=== PATIENT | male | born 1990 | race African-American/Black ===

== ENCOUNTER 2020-06-26 22:52 | Emergency (ER) | payer MEDICARE, MEDICAID, SELFPAY ==
[2020-06-26 22:57] VITALS: BP 144/84; PULSE 113; RESP 18; TEMP 36.9; O2SAT 96; BMI 36.0
--- NOTE | 2020-06-27 00:29 | PC.NURSE ---
this marketing underwriter went out to call patient in to [facility], pt was found to elope. per registration, patient lwt 10 minutes ago.
--- NOTE | 2020-06-27 00:29 | ED.ALLEREA ---
HPI - Allergic Reaction General Chief complaint: Allergic Reaction Stated complaint: allergic reaction? Time Seen by Provider: 06/27/20 00:29 Source: patient Mode of arrival: ambulatory Limitations: no limitations Related Data Allergies Allergy/AdvReac Type Severity Reaction Status Date / Time nut - unspecified Allergy Cough Verified 06/26/20 22:57 sulfamethoxazole Allergy Unknown Verified 06/26/20 22:57 [From Bactrim] trimethoprim [From Bactrim] Allergy Unknown Verified 06/26/20 22:57 Latex Exam Gloves Allergy Unknown skin Uncoded 05/05/14 00:00 irritation nickel Allergy Unknown skin Uncoded 05/05/14 00:00 irritation peanuts AdvReac Unknown N/V Uncoded 05/05/14 00:00 PMFSH Past Medical History Medical History (Updated 06/26/20 @ 23:01 by Elodia Curry) Pituitary abnormality Seizure Physical Exam Vital Signs: Vital Signs: Last Vital Signs Temp 98.4 F 06/26/20 22:57 Pulse 113 H 06/26/20 22:57 Resp 18 06/26/20 22:57 BP 144/84 H 06/26/20 22:57 Pulse Ox 96 06/26/20 22:57 Body Mass Index 36.0 Discharge Plan Discharge Patient Disposition: Left Without Being Seen
== END 2020-06-27 00:57 | disposition left against medical advice (07) ==
PROVIDERS: Emergency Provider Emergency Medicine
DX: L23.6 Allergic contact dermatitis due to food in contact with the skin (principal); L27.2 Dermatitis due to ingested food
CPT/HCPCS: 99282

== ENCOUNTER → 2023-04-01 19:30 | Outpatient (REF) | payer OTHER, MEDICAID, SELFPAY | LOC: HO.SL 19:30 | PROVIDERS: PCP Internal Medicine; Visit Provider Internal Medicine | DX: Z13.89 Encounter for screening for other disorder (principal) ==

== ENCOUNTER → 2023-05-13 19:30 | Outpatient (REF) | payer OTHER, SELFPAY | LOC: HO.SL 19:30 | PROVIDERS: PCP Internal Medicine; Visit Provider Internal Medicine | DX: Z13.89 Encounter for screening for other disorder (principal) ==

== ENCOUNTER 2023-05-27 09:14 | Outpatient (AMB) | payer OTHER, SELFPAY ==
--- NOTE | 2023-05-27 09:19 | A.OFFPC_ITS ---
Vital Signs 05/27/23 09:21 Height 5 ft 9 in Weight 290 lb BMI 42.8 BP 110/74 Blood Pressure Location Lt brachial Position Sitting Pulse 91 Pulse Source Pulse Oximeter Pulse Oximetry (%) 98 Oxygen Delivery Method Room Air Intake Visit Reasons: est care/ sleep apnea/ seizure Intake Note: Patient is a new patient here to establish care for Seizures, Epilepsy, Sleep Apnea, Sickle Cell. Transferring care from Dr Gallardo ([facility]). Medical records have not been requested and have not received. 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 Metal Burner Required: No Economic Analyst: Not Required per policy Accompanied by: Self / Same As Patient Allergies silver Allergy (Intermediate, Verified 05/27/23 10:33) skin irritations nut - unspecified Allergy (Verified 05/27/23 10:33) Cough sulfamethoxazole [From Bactrim] Allergy (Verified 05/27/23 10:33) Unknown trimethoprim [From Bactrim] Allergy (Verified 05/27/23 10:33) Unknown Latex Exam Gloves Allergy (Unknown, Uncoded 05/27/23 10:33) skin irritation peanuts Adverse Reaction (Unknown, Uncoded 05/27/23 10:33) N/V Medication List - Last Reconciled 05/27/23 by Alex Bond MD clobetasol 0.05% 1 appl topical .every other days oxcarbazepine (Trileptal) 1,200 mg PO BID Tobacco use date assessed: 05/27/23 Dental Screening Dental Screen Date: 05/27/23 Did you have a dental visit in the last 12 months?: No Did you have a dental problem in the last 6 months where you did not have access to dental care?: No Was dental information given to patient?: No HPI est care/ sleep apnea/ seizure HPI Details 33-year-old male presents to the office to establish his care here. Patient is transferring from a primary care in [place]. Patient reports he had a sleep apnea study done. He needs CPAP equipment. Patient is requesting alternative ways to treat his condition. He is also wondering if his tonsils should be removed to treat the obstructive sleep apnea. Patient has sex with men. Currently has 2 partners and uses protection. He would like to take the pre exposure prophylaxis for HIV. Patient never has had HIV testing He gives history of seizure disorder since age 11. Has been on Trileptal and the last seizure has been more than a year .. He sees a neurologist in [place]. Patient also has supported dermatitis in the scalp for which he sees a information technology director. Is prescribed an oral prescription and a lotion. He will bring and the names of the medications in the next visit. [facility] Medical History (Updated 05/28/23 @ 06:14 by Alex Bond MD) Endogenous depression High risk sexual behavior Seborrheic dermatitis Obstructive sleep apnea Pituitary abnormality Seizure Surgical History History of surgery Social History Housing: Condominium Alcohol intake: current Alcohol intake frequency: holidays/special occasions only Patient Tobacco Use Status: Never used Tobacco e-Cigarette/Vaping Use: Never Used Second Hand Smoke Exposure: No service: No Current occupational status: employed Cognitive needs: No Hearing needs: No Vision needs: Yes (Glasses) Questionnaire PHQ-9 Over the last 2 weeks, how often have you been bothered by any of the following problems? 1. Little interest or pleasure in doing things: several days 2. Feeling down, depressed, or hopeless: nearly every day 3. Trouble falling or staying asleep, or sleeping too much: nearly every day 4. Feeling tired or having little energy: nearly every day 5. Poor appetite or overeating: not at all 6. Feeling bad about yourself - or that you are a failure or have let yourself or your family down: not at all 7. Trouble concentrating on things, such as reading the newspaper or watching television: several days 8. Moving or speaking so slowly that other people could have noticed. Or the opposite - being so fidgety or restless that you have been moving around a lot more than usual: nearly every day 9. Thoughts that you would be better off or of hurting yourself in some way: not at all Total score: 14 Depression Screening Interpretation: Positive Depression Screening Follow-up: Community Mental Health Worker F/U Depression Screening Done: Yes Source: Developed by Drs. Dwayne Stafford, Elke Brown, Ryan Baker and colleagues, with an educational enmanuel from [employer]. Thrive Questionnaire Date Thrive assessed: 05/27/23 I am a: Patient What is your living situation today?: I have a steady place to live Within the past 12 months, did the food you bought not last and you didn't have the money to get more?: Never true Within the past 12 months, did you worry whether your food would run out before you got money to buy more?: Never true Do you have trouble paying for medicines?: No Do you have trouble getting transportation to medical appointments?: No Do you have trouble paying your heating and electricity bill?: No Do you have trouble taking care of your child, family member or friend?: No Do you have trouble with day-to-day activities such as bathing, preparing meals, shopping, managing finances, etc.?: No Are you currently unemployed and looking for a job?: No Are you interested in more education?: No Currently or been in a relationship where the following occur: no concerns reported THRIVE Score: 0 AUDIT C Alcohol Use Questionnaire (AUDIT-C) 1. How often do you have a drink containing alcohol?: Monthly or less Total Score: 1 NISA-7 AMB Questionnaire NISA-7 Date NISA - 7 assessed: 05/27/23 Feeling nervous, anxious, or on edge: 1 = Several days Not being able to stop or control worryin = More than half the days Worrying too much about different things: 2 = More than half the days Trouble relaxin = Nearly every day Being so restless that it is hard to sit still: 2 = More than half the days Becoming easily annoyed or irritable: 3 = Nearly every day Feeling afraid as if something awful might happen: 1 = Several days Total NISA-7 score (0-4 normal; 5-9 mild; 10-14 moderate; 15-21 severe): 14 Source: Developed by Drs. Dwayne Stafford, Elke Brown, Ryan Baker and colleagues, with an educational enmanuel from [employer]. Physical exam (Primary Care) Vital Signs: Last Vital Signs Pulse 91 05/27/23 09:21 BP 110/74 05/27/23 09:21 Pulse Ox 98 05/27/23 09:21 Oxygen Delivery Method Room Air 05/27/23 09:21 Care Plan Goal for BP management: BP is in range BMI result Body Mass Index 42.8 BMI Assessment/Plan discussion: High (One pound per week weight loss suggested.) BMI High, discussed plan: lifestyle, weight reduction, dietary and physical activity Tobacco/Smoking Status: Tobacco use Status Tobacco use date assessed 05/27/23 05/27/23 09:38 Patient Tobacco Use Status Never used Tobacco 05/27/23 09:38 e-Cigarette/Vaping Use Never Used 05/27/23 09:38 PHQ-9: PHQ-9 Score PHQ-9: Total score 14 05/27/23 10:35 Depression Screening Interpretation: Positive Depression Screening Follow-up: Community Mental Health Worker F/U Thrive Assessment: Date of Thrive Assessment Date Thrive assessed 05/27/23 05/27/23 09:38 Currently or been in a relationship where the following occur: no concerns reported Const General: cooperative and healthy appearing Nutritional Appearance: well nourished Orientation/consciousness: patient oriented x3 Limitations: no limitations HENMT Head: Yes normal to inspection Eyes General: appearance normal, both eyes and all related structures Neck Neck: Yes normal visual inspection Chest Chest palpation & inspection: normal palpation of entire chest wall Resp Effort & Inspection: normal respiratory effort Neuro General: patient oriented x3 Assessment and Plan Assessment & Plan (1) Obstructive sleep apnea: Code(s): G47.33 - Obstructive sleep apnea (adult) (pediatric) Plan: A sleep study referral has been made. He can discuss with them the results of the sleep study he had and the possible treatment options. (2) Seizure: Code(s): R56.9 - Unspecified convulsions Plan: Condition appears to be baseline. Continue medications and follow up with the neurologist at [facility]. (3) Seborrheic dermatitis: Code(s): L21.9 - Seborrheic dermatitis, unspecified Plan: Condition is at baseline. Pt was advised to call us back with the names of the medications he takes. Follow up with the information technology director as scheduled. (4) High risk sexual behavior: Code(s): Z72.51 - High risk heterosexual behavior Plan: HIV testing ordered. If negative, he is eligible for Pre exposure prophylaxis (5) Endogenous depression: Code(s): F33.2 - Major depressive disorder, recurrent severe without psychotic features Plan: Elevated PHQ-9 score noted. Will discuss treatment in the next visit. Coding Level of Care Code Est Pt Level 4 (57780) Diagnoses Obstructive sleep apnea G47.33 Seizure R56.9 Seborrheic dermatitis L21.9 High risk sexual behavior Z72.51 Endogenous depression F33.2
[2023-05-27 09:21] VITALS: BP 110/74; PULSE 91; O2SAT 98; BMI 42.8
== END 2023-05-27 11:09 | disposition home or self-care (01) ==
PROVIDERS: PCP Internal Medicine; Visit Provider Internal Medicine
DX: R56.9 Unspecified convulsions (principal); F33.2 Major depressive disorder, recurrent severe without psychotic features; G47.33 Obstructive sleep apnea (adult) (pediatric); L21.9 Seborrheic dermatitis, unspecified; Z72.51 High risk heterosexual behavior
CPT/HCPCS: 99214

== ENCOUNTER 2023-07-03 07:26 | Outpatient (AMB) | payer OTHER, SELFPAY ==
--- NOTE | 2023-07-03 07:49 | MHC.OFFVIS ---
Vital Signs 07/03/23 07:50 Height 5 ft 9 in Weight 290 lb BMI 42.8 BP 130/98 H Blood Pressure Location Rt brachial Position Sitting Intake Visit Reasons: INP-BRENDEN *C Emp request for sooner appt SJD-con Intake Note: Patient presents for sleep apnea Allergies silver Allergy (Intermediate, Verified 07/03/23 07:49) skin irritations nut - unspecified Allergy (Verified 07/03/23 07:49) Cough sulfamethoxazole [From Bactrim] Allergy (Verified 07/03/23 07:49) Unknown trimethoprim [From Bactrim] Allergy (Verified 07/03/23 07:49) Unknown Latex Exam Gloves Allergy (Unknown, Uncoded 07/03/23 07:49) skin irritation peanuts Adverse Reaction (Unknown, Uncoded 07/03/23 07:49) N/V Medication List - Last Reconciled 07/03/23 by Arleth Wagner MD clobetasol 0.05% 1 appl topical .every other days melatonin 10 mg PO BEDTIME oxcarbazepine (Trileptal) 1,200 mg PO BID HPI Comments Details: 33y/o comes for sleep evaluation . Main complaints-insomnia, snoring, gasping arousals, excessive daytime sleepiness, witnessed apneas. He reports h/o developmental delay ? 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 H/o seizures - last 7 years ago and stable on trileptal and managed by Dr. Childers at [facility]. H/o anxiety Sleep questionnaire- Difficulty falling asleep-yes- 1 hr Difficulty staying asleep-yes Number of arousals-5 Snoring-yes Witnessed apneas-yes Gasping arousals-yes Nocturia-yes GERD-no Vivid dreams-yes Acting out dreams -no Abnormal behavior in sleep-no ABnormal movements in sleep-no Morning headaches-rare Excessive daytime sleepiness-yes Daytime naps-no restless legs- no Hallucinations-no sleep paralysis- yes- occasionally Drop attacks- no Sleep study-yes 04/04 Results AHI 38 REM AHI 57 [id number] 62% CPAP no He was unable to sleep during titration study Sleep Hygiene- Sleep time- 9-10 pm sleeps at 12 Wake time -6am during weekdays and 9a m on weekends coffee/stimulant use- tea 4 glasses Phone Electronics use-no Exercise-none Bedroom comfort-good [facility] Medical History (Updated 07/03/23 @ 08:32 by Arleth Wagner MD) Insomnia Endogenous depression High risk sexual behavior Seborrheic dermatitis Obstructive sleep apnea Pituitary abnormality Seizure Surgical History History of surgery Social History Housing: Condominium Alcohol intake: current Alcohol intake frequency: holidays/special occasions only Patient Tobacco Use Status: Never used Tobacco e-Cigarette/Vaping Use: Never Used Second Hand Smoke Exposure: No service: No Current occupational status: employed Cognitive needs: No Hearing needs: No Vision needs: Yes (Glasses) Physical Exam Vital Signs: Last Vital Signs BP 130/98 H 07/03/23 07:50 BMI result Body Mass Index 42.8 Const General: cooperative, healthy appearing, comfortable and no acute distress Nutritional Appearance: malnourished and obese Orientation/consciousness: patient oriented x3 Neuro General: patient oriented x3, gait normal, tone normal, moves all extremities and no focal motor deficits Cranial nerves: Yes Facial sensation intact/muscles of mastication intact, Yes Bilaterally intact EOM present, Yes Nystagmus not present, Yes Normal facial strength present and Yes Midline tongue present Cognition (Neuro): normal cognition Gait exam (Neuro): Normal gait present Deep tendon reflexes (DTR's): Right triceps reflex intensity grade: 1+, Left triceps reflex intensity grade: 1+, Rt Biceps (C5, C6): 1+, Left biceps reflex intensity grade: 1+, Right brachioradialis reflex intensity grade: 1+, Left brachioradialis reflex intensity grade: 1+, Right patellar reflex intensity grade: 1+ and Left patellar reflex intensity grade: 1+ Coordination: [id number] test normal Assessment & Plan Assessment & Plan (1) Obstructive sleep apnea: Comment: severe AHI 38 REM AHI 57 O2 ryder 52 % Code(s): G47.33 - Obstructive sleep apnea (adult) (pediatric) Category: Medical (2) Insomnia: Comment: with delayed phase Code(s): G47.00 - Insomnia, unspecified Category: Medical Plan I suggested to move maintain his wake time at 6am both on weekdays and weekends Suggested to delay bedtime to 12 am and slowly advance to 11pm Sleep hygiene discussed I will trail him on AutoPAP 5-20 cm with a full face mask melatonin 10mg qhs and if he does not respond will consider adding gabapentin Medications: New melatonin 10 mg PO BEDTIME 30 caps 6RF sleep Coding Level of Care Code New Pt Level 4 (87767) Diagnoses Obstructive sleep apnea G47.33 Insomnia G47.00
[2023-07-03 07:50] VITALS: BP 130/98; BMI 42.8
== END 2023-07-03 08:18 | disposition home or self-care (01) ==
PROVIDERS: PCP Internal Medicine; Visit Provider Psychiatry & Neurology Neurology
DX: G47.33 Obstructive sleep apnea (adult) (pediatric) (principal); G47.00 Insomnia, unspecified
CPT/HCPCS: 99204

== ENCOUNTER → 2023-07-03 07:26 | Outpatient (BNVA) | payer OTHER, SELFPAY | PROVIDERS: PCP Internal Medicine; Visit Provider Psychiatry & Neurology Neurology ==

== ENCOUNTER → 2023-08-10 11:25 | Outpatient (BNVA) | payer OTHER, SELFPAY | PROVIDERS: PCP Internal Medicine; Visit Provider Physician Assistant Surgical ==

== ENCOUNTER 2023-09-11 08:53 | Outpatient (AMB) | payer OTHER, SELFPAY ==
[2023-09-11 09:02] VITALS: BP 145/77; PULSE 111; TEMP 36.6; O2SAT 96; BMI 44.5
--- NOTE | 2023-09-11 09:02 | A.OFFVIS_ITS ---
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 Required: No Allergies silver Allergy (Intermediate, Verified 08/10/23 13:16) skin irritations nut - unspecified Allergy (Verified 08/10/23 13:16) Cough sulfamethoxazole [From Bactrim] Allergy (Verified 08/10/23 13:16) Unknown trimethoprim [From Bactrim] Allergy (Verified 08/10/23 13:16) Unknown Latex Exam Gloves Allergy (Unknown, Uncoded 08/10/23 13:16) skin irritation peanuts Adverse Reaction (Unknown, Uncoded 08/10/23 13:16) N/V Medication List - Last Reconciled 09/11/23 by ERASMO Johnson clobetasol 0.05% 1 appl topical .every other days oxcarbazepine (Trileptal) 1,200 mg PO BID HPI Comments Details: Pt is here to start the [employer] [facility] Weight Management surgical weight loss program. He heard about our program as a [employer] [facility] employee. His goal is to lose weight and achieve a healthy lifestyle as well as to improve, if not resolve, obesity related medical conditions, including delfino. He reports first being concerned about his weight about 8 years ago, highest weight to date was 301. Current weight is 301.6 pounds with a BMI of 44.6. He has tried multiple methods of weight loss including fad diets without permanent results. He lives with friend. 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 He wakes at:?6 am, and goes to bed at?MN. Dinner is at 6-630 pm. Breakfast: banana, coffee whole milk and sugar AM snack: passion fruit tea, cinnamon rolls Lunch: salad, or hospital food in cafeteria PM snack: another tea Dinner: restaurant food, salad, After dinner: skip Other snacks: milkshakes Liquids: 48 oz water, 36 oz pepsi/coke per week, no juice Alcohol/marijuana/tobacco intake: rare etoh, no cannabis, to tobacco Exercise: none in a year, could join [employer], GERD score: 0 CRICKET score: 3 ESS score: 5 QOL score: 88 [facility] Medical History Insomnia Endogenous depression High risk sexual behavior Seborrheic dermatitis Obstructive sleep apnea Pituitary abnormality Seizure Surgical History History of surgery Social History Housing: Condominium Alcohol intake: current Alcohol intake frequency: holidays/special occasions only Patient Tobacco Use Status: Never used Tobacco e-Cigarette/Vaping Use: Never Used Second Hand Smoke Exposure: No service: No Current occupational status: employed Cognitive needs: No Hearing needs: No Vision needs: Yes (Glasses) Physical Exam Vital Signs: Last Vital Signs Pulse 111 H 09/11/23 09:02 BP 145/77 H 09/11/23 09:02 Const General: cooperative, healthy appearing and no acute distress Orientation/consciousness: patient oriented x3 HEENT Head: Yes normal to inspection Ears: hearing grossly normal bilaterally General nose exam: Normal external nose present Face and sinus: Yes normal facial exam Eyes General: appearance normal, both eyes and all related structures Resp Effort & Inspection: normal respiratory effort Auscultation: clear to auscultation bilaterally Cardio Rate: regular rate Rhythm: regular rhythm Heart sounds: S1 normal heart sound present and S2 normal heart sound present GI Inspection: Yes normal to inspection, No distended and Yes obesity Palpation (GI): Soft to palpation, nontender and no guarding Auscultation: normal bowel sounds Skin General skin exam: no rashes or lesions noted Neuro General: patient oriented x3 Extrem General: No edema Psych Appearance: grossly normal Mental Status: mental status grossly normal Speech and movement: Normal speech and movement present Affect: normal affect Attitude: cooperative Assessment & Plan Assessment & Plan (1) Morbid obesity: Code(s): E66.01 - Morbid (severe) obesity due to excess calories Category: Medical Plan: This is a?33 yo male who will start our SWL program to prepare for bariatric surgery.? Blood work, CXR, ECG, Abd US and UGI have been ordered. He is being scheduled for initial consultations. He will start SWL classes and watch the first three videos before his next appointment. 1. You have been given a paper with a link to our software [employer]ira ([email or web address]) to generate an individualized nutritional and exercise plan specific for you. Please send me a screenshot of the plans you will generate Meal to include lean meat (beef, fish, pork, turkey, chicken), or welsh yogurt, or egg whites, or beans with a salad with olive oil and fruits (berries, pears, apples, kiwi). Avoid salt, breads, potatoes, rice, pasta, desserts. 2. If you choose shakes, each shake would be drunk slowly, like coffee over a period of 2 hours. 3. If you choose bars, cut each bar in 4 pieces and eat each piece in 30 min to make each bar last 2 hours. 4. I emphasized the importance of measuring accurately the food portion and measure it when serving the food on a plate 5. The meal portions include a specific number of forks of meat (protein) and salad. You always eat the meat portion but you can replace up to half of salad/vegetables portion with rice, potatoes or pasta, or a fruit ?if you like. The less you do it the better weight loss will be. 6. One full-size fork is what can be scooped on the fork without falling aside and not what can be bit with the fork. Use regular forks like those you find in a typical restaurant. 7.? Please send me weight measurements from your body composition scale as soon as possible and then once a week. Always include your diet and exercise plan. The best time to weigh yourself is first thing in the morning after going to the bathroom. 8. The best choice for exercise would be treadmill, stationary bike or elliptical machine. Additionally, joining the gym, [employer], for a brief period of time as this will enable you to determine what machine would be better for you to purchase for your home. Additionally, you certainly may use the gym at work. Alternatively start walking outside daily, tracking calories with a goal of 300 calories per day, daily. You can download the yadira [employer] which can track your time, distance and calories while walking outside. You press start in the yadira when you start and then stop when you are finished. 9.?Goal is to lose at least 1.5-2 lbs per week, and about 10% before surgery, which is about 30 pounds 10. Please follow the diet plan exactly without any change. If you don't like something about the plan or you feel hungry you need to communicate with me so I can help you revise the plan. My cell phone number to communicate with me by text is [phone] Patient is morbidly obese and is not considered stable at this time.?I spent a total of 70 minutes reviewing/updating records, examining the patient and counseling the patient on weight management as detailed above. Orders: Orders Insulin Today E66.01 - Morbid (severe) obesity due to excess calories Hemoglobin A1c Today E66.01 - Morbid (severe) obesity due to excess calories Complete Blood Count Auto Diff Today E66.01 - Morbid (severe) obesity due to excess calories Vitamin B1 Today E66.01 - Morbid (severe) obesity due to excess calories Vitamin D 25-OH Total Today E66.01 - Morbid (severe) obesity due to excess calories US abdomen comp w elastography Today E66.01 - Morbid (severe) obesity due to excess calories FL upper GI w air Today E66.01 - Morbid (severe) obesity due to excess calories Lipid Panel Today E66.01 - Morbid (severe) obesity due to excess calories IRON PROFILE Today E66.01 - Morbid (severe) obesity due to excess calories Comprehensive Met. Panel Today E66.01 - Morbid (severe) obesity due to excess calories Vitamin B12 and Folate Today E66.01 - Morbid (severe) obesity due to excess calories Zinc Today E66.01 - Morbid (severe) obesity due to excess calories C Reactive Protein Today E66.01 - Morbid (severe) obesity due to excess calories Vitamin A Today E66.01 - Morbid (severe) obesity due to excess calories TSH reflex Free T4 Today E66.01 - Morbid (severe) obesity due to excess calories Ferritin Today E66.01 - Morbid (severe) obesity due to excess calories XR chest 2V Today E66.01 - Morbid (severe) obesity due to excess calories ECG 12 lead EKG Today E66.01 - Morbid (severe) obesity due to excess calories Referrals Behavioral Health Referral E66.01 - Morbid (severe) obesity due to excess calories
== END 2023-09-11 09:52 | disposition home or self-care (01) ==
PROVIDERS: PCP Internal Medicine; Visit Provider Physician Assistant Surgical
DX: E66.01 Morbid (severe) obesity due to excess calories (principal); Z68.41 Body mass index [BMI] 40.0-44.9, adult
CPT/HCPCS: 99205

== ENCOUNTER → 2023-09-11 08:53 | Outpatient (BNVA) | payer OTHER, SELFPAY | PROVIDERS: PCP Internal Medicine; Visit Provider Physician Assistant Surgical ==

== ENCOUNTER 2023-09-13 05:07 | Emergency (ER) | payer OTHER, SELFPAY ==
--- NOTE | ~2023-09-13 | XR_ITS ---
EXAMINATION: XR CHEST CLINICAL INFORMATION: Shortness of breath COMPARISON: None available. TECHNIQUE: 2 views of the chest were obtained. FINDINGS: The lungs are clear with no focal consolidation. No evidence of pneumothorax, pulmonary edema, or pleural effusions. The cardiomediastinal silhouette is unremarkable. No acute osseous findings. XR/XR chest 2V IMPRESSION: No acute cardiopulmonary findings.
[2023-09-13 05:15] VITALS: BP 135/85; PULSE 105; RESP 16; TEMP 37.1; O2SAT 94; BMI 47.1
--- NOTE | 2023-09-13 05:23 | ECG_ITS ---
Test Reason : heart palpatatios Blood Pressure : / mmHG Vent. Rate : 101 BPM Atrial Rate : 101 BPM P-R Int : 170 ms QRS Dur : 080 ms QT Int : 328 ms P-R-T Axes : 047 021 034 degrees QTc Int : 425 ms Sinus tachycardia Otherwise normal ECG No previous ECGs available Referred By: Generic ED Physician Electronically Signed By:Mynor Bryant
[2023-09-13 05:43] LABS: MANUAL DIFF FLAG NO
[2023-09-13 05:44] LABS: Basophils Absolute Auto 0.1 X10*3/uL (0.0-0.2); Basophils Percent Auto 0.7 % (0-2); Eosinophils Absolute Auto 0.2 X10*3/uL (0.0-0.4); Eosinophils Percent Auto 2.2 % (0-4); Hematocrit 41.8 % (42.0-52.0); Hemoglobin 13.9 g/dl (14.0-18.0); Imm Gran Abs Auto 0.06 X10*3/uL (0.00-0.03); Imm Gran Pct Auto 0.7 % (0.0-0.4); Lymphocytes Absolute Auto 2.8 X10*3/uL (1.2-4.9); Lymphocytes Percent Auto 31.6 % (20-40); Mean Corpuscular HGB Conc 33.3 g/dl (31.0-36.0); Mean Corpuscular Volume 87.3 fL (80.0-98.0); Mean Platelet Volume 8.8 fL (9.4-12.4); Monocytes Percent Auto 11.3 % (2-11); Neutrophils Absolute Auto 4.7 x10*3/uL (2.0-8.3); Neutrophils Percent Auto 53.5 % (45-73); Platelet Count 234 X10*3/uL (160-400); Red Blood Count 4.79 X10*6/uL (4.60-5.80); Red Cell Distribution Width 12.7 % (11.0-16.0); White Blood Count 8.7 X10*3/uL (4.8-10.8)
--- OUTSIDE RECORDS SUMMARY | 2023-09-13 05:49 | XMS_ITS | Continuity of Care Document ---
Author Organization [facility] Adult Address [address] [place] [address]- Care Team Providers Care Stock Saw Operator Name Role Phone Paulina WINN, [facility] Primary Care Physician Encounter [facility] [place] Date(s): 05/02/20 - 06/01/20 [facility] Adult [address] [place] [address]- Attending Physician: Hue Lazo Admitting Physician: Hue Lazo Referring Physician: AdmtrHue Allergies, Adverse Reactions, Alerts Substance Reaction Severity Status silver containing compounds Rash Active Bactrim 1 Active Nuts Severe Active Peanuts Active 1thrombocytonpenia Medications Trileptal 300 mg/5 mL (60 mg/mL) oral suspension 20 mL = 1,200 mg, By Mouth, 2 times a day, BRAND NAME ONLY. NO SUBSTITUTIONS. MEDICALLY NECESSARY.,# 1,200 mL, 11 Refills, Maintenance, 06/20/19 15:10:00 EDT, Suspension, [facility], Cannot use generic, increased seizures., 175, cm,... Start Date: 06/20/19 Stop Date: 06/14/20 Status: Ordered Problem List Condition Effective Dates Status Health Status Inform ant CVA - Cerebrovascular accident(Confirmed) Active Epilepsy(Confirmed) Active Social History Social History Type Response Smoking Status Never smoker; Tobacc o user in household: No entered on: 06/13/13 Sex
--- OUTSIDE RECORDS SUMMARY | 2023-09-13 05:49 | XMS_ITS | Continuity of Care Document ---
Author Organization [facility] Adult Address [address] [place] [address]- Care Team Providers Care Community Leader Name Role Phone Paulina WINN, [facility] Primary Care Physician ( [phone] Encounter [facility] [place] Date(s): 04/03/23 - 05/03/23 [facility] Adult [address] [place] [address]- Allergies, Adverse Reactions, Alerts Substance Reaction Severity Status silver containing compounds Rash Active Bactrim 1 Active Nuts Severe Active Peanuts Active 1thrombocytonpenia Immunizations Given and Recorded Vaccine Date Status Refusal Reason influenza virus vaccine, inactivated 03/03/13 Rodrigo rded Varicella Virus Vaccine 08/28/09 Recorded Varicella Virus Vaccine 02/23/97 Recorded tetanus/diphtheria/pertussis, acel(Tdap) 08/28/09 Recorded Meningococcal Conjugate Vaccine 06/09/07 Recorded hepatitis B adult vaccine 02/21/04 Recorded hepatitis B adult vaccine 01/05/04 Recorded tetanus-diphtheria toxoids (Td) 01/05/04 Recorded Measles/Mumps/Rubella Virus Vaccine 12/25/95 Recor ded Measles/Mumps/Rubella Virus Vaccine 09/24/91 Recor ded Medications Trileptal 300 mg/5 mL (60 mg/mL) oral suspension 20 mL, By Mouth, 2 times a day, # 500 mL, 3 Refills, Maintenance, 03/05/23 13:34:00 EST, [facility], 175, cm, 08/08/22 2:12:00 EDT, Height, 123, kg, 08/07/22 20:32:00 EDT, Dry Weight Start Date: 03/05/23 Status: Ordered Problem List Condition Confirmation Course Effective Dates Status Health St atus Informant Epilepsy Confirmed Active Severe obesity Confirmed Active Social History Social History Type Response Smoking Status Never smoker; Tobacc o user in household: No entered on: 06/13/13 Sex Patient Care team information Care Team Personnel Name: Tabby Garces RN Position: [facility] RN Member Role: Primary Care Nurse Name: Renee Chung RN Position: [facility] SN RN Member Role: Primary Care Nurse Name: Lawson Gallardo MD Position: [facility] Physician - Primary Care Member Role: PCP Address: Address: [address] [place] [address] [address] [place], [place] [address] Name: Sara Dejesus RN Position: [facility] RN Member Role: Primary Care Nurse Care Team Related Persons Name: JOSE GARCES Address: home [address] [place] [address] Name: MORA LEWIS Address: home [address] [place] [address]
--- OUTSIDE RECORDS SUMMARY | 2023-09-13 05:49 | XMS_ITS | Continuity of Care Document ---
Author Organization [facility] Adult Address [address] [place] [address]- Care Team Providers Care Data Science And Iot Manager Name Role Phone Paulina WINN, [facility] Primary Care Physician Encounter [facility] [place] Date(s): 04/24/20 - 05/24/20 [facility] Adult [address] [place] [address]- Allergies, Adverse Reactions, Alerts Substance Reaction Severity Status silver containing compounds Rash Active Bactrim 1 Active Nuts Severe Active Peanuts Active 1thrombocytonpenia Medications Trileptal 300 mg/5 mL (60 mg/mL) oral suspension 20 mL = 1,200 mg, By Mouth, 2 times a day, BRAND NAME ONLY. NO SUBSTITUTIONS. MEDICALLY NECESSARY.,# 1,200 mL, 11 Refills, Maintenance, 06/20/19 15:10:00 EDT, Suspension, [facility], Cannot use generic, increased seizures., 175, cm,... Start Date: 06/20/19 Stop Date: 06/14/20 Status: Ordered Problem List Condition Effective Dates Status Health Status Inform ant CVA - Cerebrovascular accident(Confirmed) Active Epilepsy(Confirmed) Active Vital Signs Most recent to oldest [Reference Range]: 1 Height 170 cm (04/24/20 3:34 PM) Weight 104.5 kg (04/24/20 3:34 PM) Social History Social History Type Response Smoking Status Never smoker; Tobacc o user in household: No entered on: 06/13/13 Sex
--- OUTSIDE RECORDS SUMMARY | 2023-09-13 05:49 | XMS_ITS | Continuity of Care Document ---
Author Organization [facility] ter Address [address] [place] [address]- Care Team Providers Care Flaking Roll Operator Name Role Phone Lawson Gallardo MD Primary Care Physician ( [phone] Encounter [facility] [place] Date(s): 08/22/22 - 09/27/[address] [address] Attending Physician: Mello Childers MD Admitting Physician: Mello Childers MD Referring Physician: Mello Childers MD Allergies, Adverse Reactions, Alerts Substance Reaction Severity Status silver containing compounds Rash Active Bactrim 1 Active Nuts Severe Active Peanuts Active 1thrombocytonpenia Medications Trileptal 300 mg/5 mL (60 mg/mL) oral suspension 20 mL = 1,200 mg, By Mouth, 2 times a day, # 3,600 mL, 3 Refills, Maintenance, 02/05/22 10:31:00 EST, Suspension, [facility], 170, cm, 10/31/21 11:21:00 EDT, Height, 104.5, kg, 03/30/20 16:22:00 EST, Dry Weight Start Date: 02/05/22 Stop Date: 01/31/23 Status: Ordered Problem List Condition Confirmation Course Effective Dates Status H ealth Status Informant CVA - Cerebrovascular accident Confirmed Active Epilepsy Confirmed Active Social History Social History Type Response Smoking Status Never smoker; Tobacc o user in household: No entered on: 06/13/13 Sex Patient Care team information Care Team Personnel Name: Tabby Garces RN Position: S RN Member Role: Primary Care Nurse Name: Renee Chung RN Position: [facility] RN Member Role: Primary Care Nurse Name: Lawsno Gallardo MD Position: [facility] Physician - Primary Care Member Role: PCP Address: Address: [address] [place] [address] 3rd [place] [address]- Name: Anamika Peace RN, Sara Position: [facility] RN Member Role: Primary Care Nurse Care Team Related Persons Name: JOSE GARCES Address: home [address] [place] [address] Name: MORA LEWIS Address: home [address] [place] [address]
--- OUTSIDE RECORDS SUMMARY | 2023-09-13 05:49 | XMS_ITS | Continuity of Care Document ---
Author Organization [facility] ter Address [address] [place] [address]- Care Team Providers Care Nurse Liaison Name Role Phone Paulina WINN, [facility] Primary Care Physician En[place] [facility] [place] Date(s): 03/30/20 - 04/01/[address] [address]- Discharge Disposition: A-D/C Home Attending Physician: Dereck Jane MD Admitting Physician: Dereck Jane MD Referring Physician: Not on Staff, Referring MD Allergies, Adverse Reactions, Alerts Substance Reaction Severity Status silver containing compounds Rash Active Bactrim 1 Active Nuts Severe Active Peanuts Active 1thrombocytonpenia Medications Trileptal 300 mg/5 mL (60 mg/mL) oral suspension 20 mL = 1,200 mg, By Mouth, 2 times a day, BRAND NAME ONLY. NO SUBSTITUTIONS. MEDICALLY NECESSARY.,# 1,200 mL, 11 Refills, Maintenance, 06/20/19 15:10:00 EDT, Suspension, [facility], Cannot use generic, increased seizures., 175, cm,... Start Date: 06/20/19 Stop Date: 06/14/20 Status: Ordered Problem List Condition Effective Dates Status Health Status Inform ant CVA - Cerebrovascular accident(Confirmed) Active Epilepsy(Confirmed) Active Vital Signs Most recent to oldest [Reference Range]: 1 2 3 Height 170 cm (04/01/20 4:13 AM) 170 cm (03/31/20 8:05 PM) 170 cm (03/31/20 5:32 AM) Weight 104.5 kg (03/30/20 4:22 PM) Oxygen Saturation [94-100 %] 98 % (04/01/20 4:13 AM) 100 % (03/31/20 8:05 PM) 99 % (03/31/20 2:00 PM) Pulse Rate [55-90 bpm] 75 bpm (04/01/20 4:13 AM) 98 bpm *H* (03/31/20 8:05 PM) 104 bpm *H* (03/31/20 2:00 PM) Body Mass Index [18.5-24.99] 36.16 *>HHI* (03/30/20 4:22 PM) Blood Pressure [90-138/55-84 mm Hg] 120/60mm Hg (04/01/20 4:13 AM) 148/58mm Hg *H* (03/31/20 8:05 PM) 134/62mm Hg (03/31/20 2:00 PM) Respiratory Rate [16-30 br/min] 18 br/min (04/01/20 4:13 AM) 17 br/min (03/31/20 8:05 PM) 18 br/min (03/31/20 2:00 PM) Temperature [96.8-100.4 DegF] 97.3 DegF (04/01/20 4:13 AM) 98.5 DegF (03/31/20 8:05 PM) 97.9 DegF (03/31/20 2:00 PM) Mode of Delivery (Oxygen) Room air (04/01/20 4:13 AM) Room air (03/31/20 8:05 PM) Room air (03/31/20 2:00 PM) Blood pressure sites Arm, right (04/01/20 4:13 AM) Arm, right (03/31/20 8:05 PM) Arm, right (03/31/20 5:32 AM) Temperature Route Oral (04/01/20 4:13 AM) Oral (03/31/20 8:05 PM) Oral (03/31/20 2:00 PM) Dry Weight 104.5 kg (03/30/20 4:22 PM) Social History Social History Type Response Smoking Status Never smoker; Tobacc o user in household: No entered on: 06/13/13 Sex
--- OUTSIDE RECORDS SUMMARY | 2023-09-13 05:49 | XMS_ITS | Continuity of Care Document ---
Author Organization [facility] Adult Address [address] [place] [address]- Care Team Providers Care Mft Name Role Phone Paulina WINN, [facility] Primary Care Physician Encounter [facility] [place] Date(s): 07/17/23 - 08/16/[address] [address]- Attending Physician: Hue Lazo Admitting Physician: Hue [...] mL, 3 Refills, Maintenance, 03/05/23 13:34:00 EST, [facility], 175, cm, 08/08/22 2:12:00 EDT, Height, 123, kg, 06/29/23 20:32:00 EDT, Dry Weight Start Date: 03/05/23 Status: Ordered Problem List Condition Confirmation Course Effective Dates Status Health St atus Informant Epilepsy Confirmed Active Severe obesity Confirmed Active Social History Social History Type Response Smoking Status Never smoker; Tobacc o user in household: No entered on: 06/13/13 Sex Patient Care team information Care Team Personnel Name: Mili HUMMEL, Tabby Position: [facility] RN Member Role: Primary Care Nurse Name: Renee Chung RN Position: [facility] SN RN Member Role: Primary Care Nurse Name: Lawson Gallardo MD Position: [facility] Physician - Primary Care Member Role: PCP Address: Address: [address] [place] [address]- Name: Anamika Peace RN, Sara Position: [facility] RN Member Role: Primary Care Nurse Care Team Related Persons Name: JOSE GARCES Address: [address] [place] [address] Name: MORA LEWIS Address: home [address] [place] [address]
--- OUTSIDE RECORDS SUMMARY | 2023-09-13 05:49 | XMS_ITS | Continuity of Care Document ---
Author Organization [facility] Adult Address [address] [place] [address]- Care Team Providers Care Industrial Diamond Polisher Name Role Phone Paulina WINN, [facility] Primary Care Physician Encounter [facility] Date(s): 03/19/23 - 04/18/23 [facility] Adult [address] [place] [address]- Allergies, Adverse Reactions, Alerts Substance Reaction Severity [...] mL, 3 Refills, Maintenance, 03/05/23 13:34:00 EST, [facility], 175, cm, 08/08/22 2:12:00 [...] Team Personnel Name: Tabby Garces RN Position: [facility] RN Member Role: Primary Care Nurse Name: Renee Chung RN Position: [facility] SN RN Member Role: Primary Care Nurse Name: Lawson Gallardo MD Position: [facility] Physician - Primary Care Member Role: PCP Address: Address: [address] [place] [address] [address] [place], [place] [address] Name: Sara Dejesus RN Position: [facility] RN Member Role: Primary Care Nurse Care Team Related Persons Name: JOSE GARCES Address: [address] [place] [address] Name: MORA LEWIS Address: home [address] [place] [address]
--- OUTSIDE RECORDS SUMMARY | 2023-09-13 05:49 | XMS_ITS | Continuity of Care Document ---
Author Organization [facility] Adult Address [address] [place] [address]- Care Team Providers Care Permaculture Contractor Name Role Phone Paulina WINN, [facility] Primary Care Physician Encounter [facility] Date(s): 04/27/23 - 05/27/[address] [address]- Allergies, Adverse Reactions, Alerts Substance Reaction Severity [...] 3 Refills, Maintenance, 03/05/23 13:34:00 EST, [facility], 175, cm, 08/08/22 2:12:00 EDT, [...] Team Personnel Name: Tabby Garces RN Position: [facility] RN Member Role: Primary Care Nurse Name: Renee Chung RN Position: [facility] SN RN Member Role: Primary Care Nurse Name: Lawson Gallardo MD Position: [facility] Physician - Primary Care Member Role: PCP Address: Address: [address] [place] [address] [address] [place], [place] [address] Name: Sara Dejesus RN Position: [facility] RN Member Role: Primary Care Nurse Care Team Related Persons Name: JOSE GARCES Address: [address] [place] [address] Name: MORA LEWIS Address: home [address] [place] [address]
--- OUTSIDE RECORDS SUMMARY | 2023-09-13 05:49 | XMS_ITS | Continuity of Care Document ---
Author Organization [facility] Address [address] [facility], [address] d Floor, [address] [place] [address]- Care Team Providers Care Medical Staff Manager Name Role Phone Lawson Gallardo MD Primary Care Physician Encounter [facility] [place] Date(s): 10/29/21 - 11/28/21 [facility] [address] [place] [address], 3rd Floor, [address] [place] [id number] Allergies, Adverse Reactions, Alerts Substance Reaction Severity Status silver containing compounds Rash Active Bactrim 1 Active Nuts Severe Active Peanuts Active 1thrombocytonpenia Medications Trileptal 300 mg/5 mL (60 mg/mL) oral suspension 20 mL = 1,200 mg, By Mouth, 2 times a day, BRAND NAME ONLY. NO SUBSTITUTIONS. MEDICALLY NECESSARY.,# 3,600 mL, 3 Refills, Maintenance, 10/29/21 11:18:00 EDT, Suspension, [facility],Cannot use generic, increased seizures., 170, cm, 0... Start Date: 10/29/21 Stop Date: 10/24/22 Status: Ordered Problem List Condition Confirmation Course Effective Dates Status H ealth Status Informant CVA - Cerebrovascular accident Confirmed Active Epilepsy Confirmed Active Social History Social History Type Response Smoking Status Never smoker; Tobacc o user in household: No entered on: 06/13/13 Sex Patient Care team information Personnel Name: Lawson Gallardo MD Address: Address: [facility] [address] [place], [place] [address]
--- OUTSIDE RECORDS SUMMARY | 2023-09-13 05:49 | XMS_ITS | Continuity of Care Document ---
Author Organization [facility] Adult Address [address] [place] [address]- Care Team Providers Care Certified Public Accountant Name Role Phone Lawson Gallardo MD Primary Care Physician ( [phone] [id number] - 12[facility]28[facility] Adult [address] [place] [address]- Attending Physician: Lawson Gallardo MD Allergies, Adverse Reactions, Alerts Substance Reaction Severity Status silver containing compounds Rash Active Bactrim 1 Active Nuts Severe Active Peanuts Active 1thrombocytonpenia Medications Trileptal 300 mg/5 mL (60 mg/mL) oral suspension 20 mL = 1,200 mg, By Mouth, 2 times a day, BRAND NAME ONLY. NO SUBSTITUTIONS. MEDICALLY NECESSARY.,# 1,200 mL, 11 Refills, Maintenance, 09/06/20 15:51:00 EDT, Suspension, [facility], Cannot use generic, increased seizures., 170, cm,... Start Date: 09/06/20 Stop Date: 09/01/21 Status: Ordered Problem List Condition Effective Dates Status Health Status Inform ant CVA - Cerebrovascular accident(Confirmed) Active Epilepsy(Confirmed) Active Social History Social History Type Response Smoking Status Never smoker; Tobacc o user in household: No entered on: 06/13/13 Sex
--- OUTSIDE RECORDS SUMMARY | 2023-09-13 05:49 | XMS_ITS | Continuity of Care Document ---
Author Organization [facility] Adult Address [address] [place] [address]- Care Team Providers Care Rock Singer Name Role Phone Paulina WINN, [facility] Primary Care Physician Encounter [facility] Date(s): 03/06/23 - 04/05/23 [facility] Adult [address] [place] [address]- Allergies, Adverse Reactions, Alerts Substance Reaction Severity [...] mL, 3 Refills, Maintenance, 03/05/23 13:34:00 EST, [facility], 175, cm, 08/08/22 2:12:00 EDT, [...] Team Personnel Name: Tabby Garces RN Position: [facility] RN Member Role: Primary Care Nurse Name: Renee Chung RN Position: [facility] SN RN Member Role: Primary Care Nurse Name: Lawson Gallardo MD Position: [facility] Physician - Primary Care Member Role: PCP Address: Address: [address] [place] [address] [address] [place], [place] [address] Name: Sara Dejesus RN Position: [facility] RN Member Role: Primary Care Nurse Care Team Related Persons Name: JOSE GARCES Address: [address] [place] [address] Name: MORA LEWIS Address: home [address] [place] [address]
--- OUTSIDE RECORDS SUMMARY | 2023-09-13 05:49 | XMS_ITS | Continuity of Care Document ---
Author Organization [facility] Address [address] [facility], [address] Floor, [address] [place] [address]- Care Team Providers Care Home Day Care Provider Name Role Phone Paulina WINN, [facility] Primary Care Physician En[place] [facility] [place] Date(s): 01/21/22 - 02/20/22 [facility] [address], [address] Floor, [address] [place] [address]- Allergies, Adverse Reactions, Alerts Substance Reaction Severity Status silver containing compounds Rash Active Bactrim 1 Active Nuts Severe Active Peanuts Active 1thrombocytonpenia Medications Trileptal 300 mg/5 mL (60 mg/mL) oral suspension 20 mL = 1,200 mg, By Mouth, 2 times a day, # 3,600 mL, 3 Refills, Maintenance, 02/05/22 10:31:00 EST, Suspension, [facility], 170, cm, 10/31/21 11:21:00 EDT, Height, 104.5, kg, 03/30/20 16:22:00 EST, Dry Weight Start Date: 02/05/22 Stop Date: 01/31/23 Status: Ordered Trileptal 600 mg oral tablet 2 tablet = 1,200 mg, By Mouth, 2 times a day, # 360 tablet, 3 Refills, Maintenance, 01/22/22 16:15:00 EST, Tablet, [facility], 170, cm, 10/31/21 11:21:00 EDT, Height, 104.5, kg, 03/30/20 16:22:00 EST, Dry Weight Start Date: 01/22/22 Stop Date: 01/17/23 Status: Ordered Problem List Condition Confirmation Course Effective Dates Status H ealth Status Informant CVA - Cerebrovascular accident Confirmed Active Epilepsy Confirmed Active Social History Social History Type Response Smoking Status Never smoker; Tobacc o user in household: No entered on: 06/13/13 Sex Patient Care team information Care Team Personnel Name: Tabby Garces RN Position: [facility] RN Member Role: Primary Care Nurse Name: Lawson Gallardo MD Position: [facility] Primary Care Physician Member Role: PCP Address: Address: [address] [place] [address] Name: Sara Dejesus RN Position: [facility] RN Member Role: Primary Care Nurse Name: Renee Lopez RN Position: [facility] RN Member Role: Primary Care Nurse Care Team Related Persons Name: JOSE GARCES Address: home [address] [place] [address] Name: MORA LEWIS Address: home [address] [place] [address]
--- OUTSIDE RECORDS SUMMARY | 2023-09-13 05:49 | XMS_ITS | Continuity of Care Document ---
Author Organization [facility] Address [address] [place] [address]- Care Team Providers Care Practice Representative Name Role Phone Paulina WINN, Lawson Primary Care Physician ( [phone] Encounter [facility] Date(s): 08/07/22 - 08/08/[address] [address]- Discharge Disposition: A-D/C Home Attending Physician: Whitley Corona MD Admitting Physician: Whitley Corona MD Referring Physician: Not on Staff, Referring MD Allergies, Adverse Reactions, Alerts Substance Reaction Severity Status silver containing compounds Rash Active Bactrim 1 Active Nuts Severe Active Peanuts Active 1thrombocytonpenia Medications ketoconazole 1% topical shampoo shampoo, Topically, Every third day, for 28 days, # 200 mL, 0 Refills, Acute 09/05/22 2:01:00 EDT, 08/08/22 2:01:00 EDT, [facility], Partial fill upon patient request if the prescription is for a schedule II opioid drug., shampoo Topi... Start Date: 08/08/22 Stop Date: 09/05/22 Status: Ordered Trileptal 300 mg/5 mL (60 mg/mL) oral suspension 20 mL = 1,200 mg, By Mouth, 2 times a day, # 3,600 mL, 3 Refills, Maintenance, 02/05/22 10:31:00 EST, Suspension, [facility], 170, cm, 10/31/21 11:21:00 EDT, Height, 104.5, kg, 03/30/20 16:22:00 EST, Dry Weight Start Date: 12/28/22 Stop Date: 01/31/23 Status: Ordered Problem List Condition Confirmation Course Effective Dates Status H ealth Status Informant CVA - Cerebrovascular accident Confirmed Active Epilepsy Confirmed Active Vital Signs Most recent to oldest [Reference Range]: 1 2 3 Height 175 cm (08/08/22 2:12 AM) 175 cm (08/07/22 11:15 PM) 175 cm (08/07/22 8:32 PM) Weight 123 kg (08/07/22 8:32 PM) Oxygen Saturation [94-100 %] 97 % (08/08/22 2:12 AM) 96 % (08/07/22 11:15 PM) 100 % (08/07/22 8:32 PM) Pulse Rate [55-90 bpm] 81 bpm (08/08/22 2:12 AM) 93 bpm *H* (08/07/22 11:15 PM) 83 bpm (08/07/22 8:32 PM) Blood Pressure [90-138/55-84 mm Hg] 146/84mm Hg *H* (08/08/22 2:12 AM) 155/81mm Hg *H* (08/07/22 11:15 PM) 131/94mm Hg (08/07/22 8:32 PM) Respiratory Rate [16-30 br/min] 16 br/min (08/07/22 8:32 PM) Temperature [96.8-100.4 DegF] 97.6 DegF (08/08/22 2:12 AM) 98.2 DegF (08/07/22 11:15 PM) 98.0 DegF (08/07/22 8:32 PM) Mode of Delivery (Oxygen) Room air (08/08/22 2:12 AM) Room air (08/07/22 11:15 PM) Room air (08/07/22 8:32 PM) Blood pressure sites Arm, left (08/08/22 2:12 AM) Arm, left (08/07/22 11:15 PM) Arm, left (08/07/22 8:32 PM) Temperature Route Oral (08/08/22 2:12 AM) Oral (08/07/22 11:15 PM) Oral (08/07/22 8:32 PM) Dry Weight 123 kg (08/07/22 8:32 PM) Weight Obtained Via Standing scale (08/07/22 8:32 PM) Social History Social History Type Response Smoking Status Never smoker; Tobacc o user in household: No entered on: 06/13/13 Sex Note * Whitley Corona MD: PERFORM, SIGN, VERIFY Event Display: Patient Education Handout Authored Date: [id number] * Whitley Corona MD: PERFORM Event Display: Patient Education Leaflets Authored Date: [id number] Lymph Node Swelling in the Neck, No??Antibiotic Treatment ?? [id number] Lymph Node Swelling in the Neck, No??Antibiotic Treatment You have a swollen, or enlarged, lymph node (gland) in your neck. The lymph nodes are part of the immune system. They're found under the jaw and along the side of the neck, in the armpits, and in thegroin. Infection or inflammation are the main causes of swollen lymph nodes in that area. In some cases, cancer is the cause. The lymph nodes may also be a little sore. Antibiotics aren't used for swollen lymph nodes unless the nodes are infected by germs (bacteria). A viral infection with swollen glands isn't treated with antibiotics. Instead you can use warm compresses and pain medicine to treat the swollen glands. The pain will get better over the next 7 to 10 days. The swelling may take 1 to 2 weeks or more to go away. If a bacterial infection occurs inside the lymph node, it becomes very painful. The nearby skin gets red and warm. You may also have a fever. If this happens, call your healthcare provider. You may need to take antibiotics. You may also need to have the lymph node drained. Home care Follow these guidelines when caring for yourself at home: ??? Make a warm compress by running warm water over a washcloth. Put the compress on the sore area until the compress cools off. Repeat this for 20 minutes. Use the compress 3 times a day for the first 3 days, or until the pain and redness start to get better. The heat will make more blood flow to the area and speed the healing process. ??? You may use acetaminophen or ibuprofen to control pain and fever, unless another medicine was prescribed for this. Don???t use ibuprofen in children under 6 months of age. If you have chronic liver or kidney disease, talk with your healthcare provider before using these medicines. Also talk with your provider if you???ve had a stomach ulcer or digestive tract bleeding. Don???t give aspirin to anyone under 18 years of age who is ill with a fever. It may cause severe liver damage. ?? Follow-up care Follow up with your healthcare provider, or as advised. ?? When to get medical care Call your healthcare provider right away if any of these occur: ??? Redness over the lymph node ???Swelling or pain in the lymph node gets worse ??? Lymph node is getting soft in the middle ??? Pus or fluid drains from the lymph node ??? You have trouble breathing or swallowing ??? Fever of??100.4??F (38??C)??or higher, or as advised by your provider ??? Chills ??? You have questions or concerns? Last Reviewed Date: 2021 ?? [employer]. All rights reserved. This information is not intended as a substitute for professional medical care. Always follow your healthcare professional's instructions. ?? * Whitley Corona MD: PERFORM Event Display: Patient Education Leaflets Authored Date: [id number] Atopic Dermatitis ?? Atopic Dermatitis - Video Atopic dermatitis is a skin inflammation caused by sensitivity to something in the environment. It often runs in families and may occur along with hay fever, asthma, or nasal allergies. This video explores the possible triggers for the condition and who is at risk. To view the video go to this web address: https://bit.I and love and [email or web address] Or, scan this QR code with your smart phone Last Reviewed Date: 2019 ?? 0918-8892 [employer]. All rights reserved. This information is not intended as a substitute for professional medical care. Always follow your healthcare professional's instructions. ?? Patient Care team information Care Team Personnel Name: Tabby Garces RN Position: [facility] RN Member Role: Primary Care Nurse Name: Renee Chung RN Position: [facility] RN Member Role: Primary Care Nurse Name: Lawson Gallardo MD Position: [facility] Physician - Primary Care Member Role: PCP Address: Address: [address] [place] [address] [address] [facility] [place] [address]- [place] Name: Anamika Peace RN, Sara Position: [facility] RN Member Role: Primary Care Nurse Name: Nate Cisse RN Position: [facility] ED RN W/OE and Tasks Member Role: Patient Care Provider Name: Lara Beebe Position: [facility] ED TA [facility] Member Role: Patient Care Provider Name: Whitley Corona MD Position: [facility] ED Medicine MD Member Role: ED Attending Physician Address: Address: [address] [place] [address] [place] [address]- Care Team Related Persons Name: GONSALOTRACEY JOSE Address: home [address] [place] [address] Name: MORA LEWIS Address: home [address] [place] [address]
--- OUTSIDE RECORDS SUMMARY | 2023-09-13 05:49 | XMS_ITS | Continuity of Care Document ---
Author Organization [facility] Address [address] [facility], 3r d Floor, [address] [place] [address]- Care Team Providers Care Wood Grinder Operator Name Role Phone Paulina WINN, [facility] Primary Care Physician Encounter [facility] Date(s): 06/20/20 - 07/20/20 [facility] [address] [place], [address]rd Floor, [address] [place] [address]- Attending Physician: Hue Lazo Admitting Physician: Hue [...] 11 Refills, Maintenance, 06/20/19 15:10:00 EDT, Suspension, [facility], Cannot use generic, increased seizures., 175, cm,... Start Date: 06/20/19 Stop Date: 06/14/20 Status: Ordered Problem List Condition Effective Dates Status Health Status Inform ant CVA - Cerebrovascular accident(Confirmed) Active Epilepsy(Confirmed) Active Social History Social History Type Response Smoking Status Never smoker; Tobacc o user in household: No entered on: 06/13/13 Sex
--- OUTSIDE RECORDS SUMMARY | 2023-09-13 05:49 | XMS_ITS | Continuity of Care Document ---
Author Organization [facility] Address [address] [facility], 3r d Floor, [address] [place] [address]- Care Team Providers Care Steam Shovel Oiler Name Role Phone Paulina WINN, [facility] Primary Care Physician ( [phone] Encounter [facility] Date(s): 01/23/22 - 02/22/22 [facility] [address], 3[address] Floor, [address] [place] [address]- Allergies, Adverse Reactions, Alerts Substance Reaction Severity Status silver containing compounds Rash Active Bactrim 1 Active Nuts Severe Active Peanuts Active 1thrombocytonpenia Medications Trileptal 300 mg/5 mL (60 mg/mL) oral suspension 20 mL = 1,200 mg, By Mouth, 2 times a day, # 3,600 mL, 3 Refills, Maintenance, 02/05/22 10:31:00 EST, Suspension, [facility], 170, cm, 10/31/21 11:21:00 EDT, Height, 104.5, kg, 03/30/20 16:22:00 EST, Dry Weight Start Date: 02/05/22 Stop Date: 01/31/23 Status: Ordered Trileptal 600 mg oral tablet 2 tablet = 1,200 mg, By Mouth, 2 times a day, # 360 tablet, 3 Refills, Maintenance, 01/22/22 16:15:00 EST, Tablet, [facility], 170, cm, 10/31/21 11:21:00 [...] Care Nurse Name: Lawson Gallardo MD Position: [facility] Primary Care Physician Member Role: PCP Address: Address: [address] [place] [address] Name: Sara Dejesus RN Position: [facility] RN Member Role: Primary Care Nurse Name: Renee Lopez RN Position: [facility] RN Member Role: Primary Care Nurse Care Team Related Persons Name: GONSALOTRACEY JOSE Address: home [address] [place] [address] Name: MORA LEWIS Address: home [address] [place] [address]
--- OUTSIDE RECORDS SUMMARY | 2023-09-13 05:49 | XMS_ITS | Continuity of Care Document ---
Author Organization [facility] ter Address [address] [place] [address]- Care Team Providers Care Mash Tub Cooker Operator Name Role Phone Paulina WINN, [facility] Primary [facility] Physician [place] [facility] [place]/18[place] - 04/23/[address] [address] Attending Physician: Mello Childers MD Admitting [...] 3 Refills, Maintenance, 02/05/22 10:31:00 EST, Suspension, [facility], 170, cm, 10/31/21 11:21:00 EDT, Height, 104.5, kg, 03/30/20 16:22:00 EST, Dry Weight Start Date: 02/05/22 Stop Date: 01/31/23 Status: Ordered Trileptal 600 mg oral tablet 2 tablet = 1,200 mg, By Mouth, 2 times a day, # 360 tablet, 3 Refills, Maintenance, 01/22/22 16:15:00 EST, Tablet, [facility], 170, cm, 10/31/21 11:21:00 [...] Care Nurse Name: Lawson Gallardo MD Position: S Primary Care Physician Member Role: PCP Address: Address: [address] [place] [address] Name: Anamika Peace RN, Sara Position: S RN Member Role: Primary Care Nurse Name: Renee Lopez RN Position: S RN Member Role: Primary Care Nurse Care Team Related Persons Name: JOSE GARCES Address: home [address] [place] [address] Name: MORA LEWIS Address: home [address] [place] [address]
--- OUTSIDE RECORDS SUMMARY | 2023-09-13 05:50 | XMS_ITS | Continuity of Care Document ---
Author Organization [facility] Address [address] [place] [address]- Care Team Providers Care Nuclear Supervising Operator Name Role Phone Paulina WINN, Lawson Primary Care Physician [place] [facility] [place] 05/02[place]20 - 05/09/20 [facility] [address] [place] [address]- Attending Physician: Lawson Gallardo MD Allergies, Adverse Reactions, Alerts Substance Reaction Severity Status silver containing compounds Rash Active Bactrim 1 Active Nuts Severe Active Peanuts Active 1thrombocytonpenia Medications Trileptal 300 mg/5 mL (60 mg/mL) oral suspension 20 mL = 1,200 mg, By Mouth, 2 times a day, BRAND NAME ONLY. NO SUBSTITUTIONS. MEDICALLY NECESSARY.,# 1,200 mL, 11 Refills, Maintenance, 06/20/19 15:10:00 EDT, Suspension, [facility], Cannot use generic, increased seizures., 175, cm,... Start Date: 06/20/19 Stop Date: 06/14/20 Status: Ordered Problem List Condition Effective Dates Status Health Status Inform ant CVA - Cerebrovascular accident(Confirmed) Active Epilepsy(Confirmed) Active Vital Signs Most recent to oldest [Reference Range]: 1 Height 170 cm (05/02/20 9:53 AM) Social History Social History Type Response Smoking Status Never smoker; Tobacc o user in household: No entered on: 06/13/13 Sex
--- OUTSIDE RECORDS SUMMARY | 2023-09-13 05:50 | XMS_ITS | Continuity of Care Document ---
Author Organization [facility] Address [address] [facility], 3r d Floor, [address] [place] [address]- Care Team Providers Care Procurement Director Name Role Phone Not on Staff, PCP Primary Care Physician Unavail able [place] [facility] Date(s): 06/20/19 - 06/27/19 [facility] [address] [place], 3rd Floor, [address] [place] [address]- [facility] Attending Physician: Alyce Urias NP Admitting Physician: Alyce Urias NP Allergies, Adverse Reactions, Alerts Substance Reaction Severity Status Peanuts Active Medications Trileptal 300 mg/5 mL (60 mg/mL) oral suspension 20 mL = 1,200 mg, By Mouth, 2 times a day, BRAND NAME ONLY. NO SUBSTITUTIONS. MEDICALLY NECESSARY.,# 1,200 mL, 11 Refills, Maintenance, 06/20/19 15:10:00 EDT, Suspension, [facility], Cannot use generic, increased seizures., 175, cm,... Start Date: 06/20/19 Stop Date: 06/14/20 Status: Ordered Vitamin D3 2000 intl units oral capsule 1 capsule = 2,000 International_Units, By Mouth, Daily, # 30 capsule, 11 Refills, Maintenance, 06/20/19 15:11:00 EDT, [facility], 175, cm, 06/16/18 13:43:00 EDT, Height Start Date: 06/20/19 Stop Date: 06/14/20 Status: Ordered Problem List Condition Effective Dates Status Health Status Inform ant CVA - Cerebrovascular accident(Confirmed) Active Epilepsy(Confirmed) Active Social History Social History Type Response Smoking Status Never smoker; Tobacc o user in household: No entered on: 06/13/13 Sex
--- OUTSIDE RECORDS SUMMARY | 2023-09-13 05:50 | XMS_ITS | Continuity of Care Document ---
Author Organization [facility] ter Address [address] [place] [address]- Care Team Providers Care Chemical Preparer Name Role Phone Lawson Gallardo MD Primary Care Physician [place] [facility] [place]s): 04/19/20 - 05/25/[address] [address]- Attending Physician: Lawson Gallardo MD Admitting Physician: Lawson Gallardo MD Referring Physician: Lawson Gallardo MD Allergies, Adverse Reactions, Alerts Substance Reaction Severity Status silver containing compounds Rash Active Bactrim 1 Active Nuts Severe Active Peanuts Active 1thrombocytonpenia Medications Trileptal 300 mg/5 mL (60 mg/mL) oral suspension 20 mL = 1,200 mg, By Mouth, 2 times a day, BRAND NAME ONLY. NO SUBSTITUTIONS. MEDICALLY NECESSARY.,# 1,200 mL, 11 Refills, Maintenance, 06/20/19 15:10:00 EDT, Suspension, [facility], [...]
--- OUTSIDE RECORDS SUMMARY | 2023-09-13 05:50 | XMS_ITS | Continuity of Care Document ---
Author Organization [facility] Address [address] [facility], 3r d Floor, [address] [place] [address]- Care Team Providers Care Background Investigator Name Role Phone Lawson Gallardo MD Primary Care Physician [place] [facility] 10[place]31[place]21 - 11/30/21 [facility] [address] [facility], 3rd Floor, [address] [place] [address] Attending Physician: Hue Lazo Admitting Physician: Hue [...] 3 Refills, Maintenance, 10/29/21 11:18:00 EDT, Suspension, [facility],Cannot use generic, increased seizures., 170, [...] Personnel Name: Lawson Gallardo MD Address: Address: [facility] [address] [place] [address]-
--- OUTSIDE RECORDS SUMMARY | 2023-09-13 05:50 | XMS_ITS | Continuity of Care Document ---
Author Organization [facility] Address [address] [place] [address]- Care Team Providers Care Parts Chaser Name Role Phone Paulina WINN, [facility] Primary Care Physician Encounter [facility] Date(s): 03/16/23 - 04/15/23 [facility] [address] [place] [address]- Allergies, Adverse Reactions, Alerts Substance Reaction Severity [...] 3 Refills, Maintenance, 03/05/23 13:34:00 EST, [facility], 175, cm, 08/08/22 [...] Team Personnel Name: Tabby Garces RN Position: [facility] RN Member Role: Primary Care Nurse Name: Renee Chung RN Position: [facility] SN RN Member Role: Primary Care Nurse Name: Lawson Gallardo MD Position: [facility] Physician - Primary Care Member Role: PCP Address: Address: [address] [place] [address] [address] [place], [place] [address] Name: Sara Dejesus RN Position: [facility] RN Member Role: Primary Care Nurse Care Team Related Persons Name: JOSE GARCES Address: home [address] [place] [address] Name: MORA LEWIS Address: home [address] [place] [address]
--- OUTSIDE RECORDS SUMMARY | 2023-09-13 05:50 | XMS_ITS | Continuity of Care Document ---
Author Organization [facility] Address [address] [place] [address]- Care Team Providers Care Wagon Driller Name Role Phone Not on Staff, PCP Primary Care Physician Unavail able [place] [facility] [place] Date(s): 03/20/20 - 03/20/[address] [address]- Discharge Disposition: A-D/C Home Attending Physician: Shad Ndiaye MD Admitting Physician: Shad Ndiaye MD Referring Physician: Not on Staff, Referring MD Allergies, Adverse Reactions, Alerts Substance Reaction Severity Status Peanuts Active Medications Bactrim DS 800 mg-160 mg oral tablet 1 tablet, By Mouth, 2 times a day, for 7 days, # 14 tablet, 0 Refills, Acute 03/27/20 17:08:00 EST,03/20/20 17:08:00 EST, Tablet, [facility], Partial fill upon patient request if the prescription is for a schedule II opioid drug., 1... Start Date: 03/20/20 Stop Date: 03/27/20 Status: Ordered Trileptal 300 mg/5 mL (60 mg/mL) oral suspension 20 mL = 1,200 mg, By Mouth, 2 times a day, BRAND NAME ONLY. NO SUBSTITUTIONS. MEDICALLY NECESSARY.,# 1,200 mL, 11 Refills, Maintenance, 06/20/19 15:10:00 EDT, Suspension, [facility], Cannot use generic, increased seizures., 175, cm,... Start Date: 06/20/19 Stop Date: 06/14/20 Status: Ordered Vitamin D3 2000 intl units oral capsule 1 capsule = 2,000 International_Units, By Mouth, Daily, # 30 capsule, 11 Refills, Maintenance, 06/20/19 15:11:00 EDT, [facility], 175, cm, 06/16/18 13:43:00 EDT, Height Start Date: 06/20/19 Stop Date: 06/14/20 Status: Ordered Problem List Condition Effective Dates Status Health Status Inform ant CVA - Cerebrovascular accident(Confirmed) Active Epilepsy(Confirmed) Active Results Radiology Reports * Exam Date Time Procedure Performing Provider Status 03/20/20 4:58 PM Humerus Min 2 Views Left Ian Alfredo jovan; Auth (Verified) Notes: (Humerus Min 2 Views Left) Reason For Exam: axillary abscess;Foreign Body RESULT: Humerus Min 2 Views Left Left humerus , 2 views Hx of Present Illness: blister abscess Laxilla - started about a week ago. States the blister popped and it may be infected. No fevers chills. No cough or SOB. No N V D; Reason: Foreign Body; axillary abscess; Clinical Question(s): Foreign Body COMPARISON: None. FINDINGS: No fractures or bone lesions. The visualized portions of the joints are normal. Normal soft tissues. No foreign body or soft tissue emphysema. IMPRESSION: Normal. WSN: [id number] Ordering Physician: Boom Santos Dictated By: Angel Luis Watts MD Dictated Date/Time: 03/20/20 5:00 pm Reviewed By: Angel Luis Watts MD Signed By: Angel Luis Watts MD Signed Date/Time: 03/20/20 5:00 pm Transcribed By: TURNER Transcribed Date/Time: 03/20/20 4:59 pm Vital Signs Most recent to oldest [Reference Range]: 1 2 Height 177 cm (03/20/20 2:10 PM) Weight 121.6 kg (03/20/20 2:10 PM) Oxygen Saturation [94-100 %] 100 % (03/20/20 2:10 PM) 100 % (03/20/20 2:01 PM) Pulse Rate [55-90 bpm] 105 bpm *H* (03/20/20 2:10 PM) 114 bpm *H* (03/20/20 2:01 PM) Body Mass Index [18.5-24.99] 38.81 *>HHI* (03/20/20 2:10 PM) Blood Pressure [90-138/55-84 mm Hg] 144/ 81mm Hg *H* (03/20/20 2:10 PM) Respiratory Rate [16-30 br/min] 18 br/mi n (03/20/20 2:10 PM) Temperature [96.8-100.4 DegF] 98.5 DegF (03/20/20 2:10 PM) Mode of Delivery (Oxygen) Room air (03/20/20 2:10 PM) Blood pressure sites Arm, right (03/20/20 2:10 PM) Temperature Route Oral (03/20/20 2:10 PM) Dry Weight 121.6 kg (03/20/20 2:10 PM) Weight Obtained Via Standing scale (03/20/20 2:10 PM) Dry Weight Obtained Via Standing scale (03/20/20 2:10 PM) Social History Social History Type Response Smoking Status Never smoker; Tobacc o user in household: No entered on: 06/13/13 Sex
--- OUTSIDE RECORDS SUMMARY | 2023-09-13 05:50 | XMS_ITS | Continuity of Care Document ---
Author Organization [facility] Adult Address [address] [place] [address]- Care Team Providers Care Data Developer Name Role Phone Lawson Gallardo MD Primary Care Physician [id number] Date(s): [facility] - 04/13/[address] [address]- Encounter Diagnosis CVA - Cerebrovascular accident(Discharge Diagnosis) - 04/06/20 Epilepsy(Discharge Diagnosis) - 04/06/20 Thrombocytopenia(Discharge Diagnosis) - 04/06/20 Snoring(Discharge Diagnosis) - 04/06/20 Attending Physician: Lawson Gallardo MD Allergies, Adverse Reactions, Alerts Substance Reaction Severity Status silver containing compounds Rash Active Bactrim 1 Active Nuts Severe Active Peanuts Active 1thrombocytonpenia Medications Trileptal 300 mg/5 mL (60 mg/mL) oral suspension 20 mL = 1,200 mg, By Mouth, 2 times a day, BRAND NAME ONLY. NO SUBSTITUTIONS. MEDICALLY NECESSARY.,# 1,200 mL, 11 Refills, Maintenance, 06/20/19 15:10:00 EDT, Suspension, [facility], Cannot use generic, increased seizures., 175, cm,... Start Date: 06/20/19 Stop Date: 06/14/20 Status: Ordered Problem List Condition Effective Dates Status Health Status Inform ant CVA - Cerebrovascular accident(Confirmed) Active Epilepsy(Confirmed) Active Diagnosis Diagnosis Type Effective Dates Health Status Clinical Service Informant CVA - Cerebrovascular accident Discharge Diagnosis 04/06/20 Epilepsy Discharge Diagnosis 04/06/20 Thrombocytopenia Discharge Diagnosis 04/06/20 Snoring Discharge Diagnosis 04/06/20 Vital Signs Most recent to oldest [Reference Range]: 1 Height 170 cm (04/06/20 12:32 PM) Weight 104.5 kg (04/06/20 12:32 PM) Body Mass Index [18.5-24.99] 36.16 *>HHI* (04/06/20 12:32 PM) Weight Obtained Via Patient/family state d (04/06/20 12:32 PM) Social History Social History Type Response Smoking Status Never smoker; Tobacc o user in household: No entered on: 06/13/13 Sex
--- OUTSIDE RECORDS SUMMARY | 2023-09-13 05:50 | XMS_ITS | Continuity of Care Document ---
Author Organization [facility] Adult Address [address] [place] [address]- Care Team Providers Care Store Product Demonstrator Name Role Phone Paulina WINN, [facility] Primary Care Physician Encounter [facility] [place] Date(s): 11/28/20 - 12/28/20 [facility] Adult [address] [place] [address]- Attending Physician: Hue Lazo Admitting Physician: Hue Lazo Referring Physician: Hue Lazo Allergies, Adverse Reactions, Alerts Substance Reaction Severity Status silver containing compounds Rash Active Bactrim 1 Active Nuts Severe Active Peanuts Active 1thrombocytonpenia Medications Trileptal 300 mg/5 mL (60 mg/mL) oral suspension 20 mL = 1,200 mg, By Mouth, 2 times a day, BRAND NAME ONLY. NO SUBSTITUTIONS. MEDICALLY NECESSARY.,# 1,200 mL, 11 Refills, Maintenance, 09/06/20 15:51:00 EDT, Suspension, [facility], Cannot use generic, increased seizures., 170, cm,... Start Date: 09/06/20 Stop Date: 09/01/21 Status: Ordered Problem List Condition Effective Dates Status Health Status Inform ant CVA - Cerebrovascular accident(Confirmed) Active Epilepsy(Confirmed) Active Social History Social History Type Response Smoking Status Never smoker; Tobacc o user in household: No entered on: 06/13/13 Sex
--- OUTSIDE RECORDS SUMMARY | 2023-09-13 05:50 | XMS_ITS | Continuity of Care Document ---
Author Organization [facility] Address [address] [facility], [address]r d Floor, [address] [place] [address]- Care Team Providers Care Public Relations Supervisor Name Role Phone Paulina WINN, [facility] Primary Care Physician [place] [facility] [place]20 - 05/04/20 [facility] [address], [address] Floor, [address] [place] [address] Allergies, Adverse Reactions, Alerts Substance Reaction Severity Status silver containing compounds Rash Active Bactrim 1 Active Nuts Severe Active Peanuts Active 1thrombocytonpenia Medications Trileptal 300 mg/5 mL (60 mg/mL) oral suspension 20 mL = 1,200 mg, By Mouth, 2 times a day, BRAND NAME ONLY. NO SUBSTITUTIONS. MEDICALLY NECESSARY.,# 1,200 mL, 11 Refills, Maintenance, 06/20/19 15:10:00 EDT, Suspension, [facility], Cannot use generic, increased seizures., 175, cm,... Start Date: 06/20/19 Stop Date: 06/14/20 Status: Ordered Problem List Condition Effective Dates Status Health Status Inform ant CVA - Cerebrovascular accident(Confirmed) Active Epilepsy(Confirmed) Active Social History Social History Type Response Smoking Status Never smoker; Tobacc o user in household: No entered on: 06/13/13 Sex
--- OUTSIDE RECORDS SUMMARY | 2023-09-13 05:50 | XMS_ITS | Continuity of Care Document ---
Author Organization [facility] Address [address] [place] [address]- Care Team Providers Care Shingle Carrier Name Role Phone Not on Staff, PCP Primary Care Physician Unavail able [place] [facility] [place]21[place] - 07/21/[address] [facility] [address] [address]- [facility] Attending Physician: Hue Lazo Admitting Physician: Hue Lazo Referring Physician: Hue Lazo Allergies, Adverse Reactions, Alerts Substance Reaction Severity Status Peanuts Active Medications Trileptal 300 mg/5 mL (60 mg/mL) oral suspension 20 mL = 1,200 mg, By Mouth, 2 times a day, BRAND NAME ONLY. NO SUBSTITUTIONS. MEDICALLY NECESSARY.,# 1,200 mL, 11 Refills, Maintenance, 06/20/19 15:10:00 EDT, Suspension, [facility], Cannot use generic, increased seizures., 175, cm,... Start Date: 06/20/19 Stop Date: 06/14/20 Status: Ordered Vitamin D3 2000 intl units oral capsule 1 capsule = 2,000 International_Units, By Mouth, Daily, # 30 capsule, 11 Refills, Maintenance, 06/20/19 15:11:00 EDT, [facility], 175, cm, 06/16/18 13:43:00 EDT, Height Start Date: 06/20/19 Stop Date: 06/14/20 Status: Ordered Problem List Condition Effective Dates Status Health Status Inform ant CVA - Cerebrovascular accident(Confirmed) Active Epilepsy(Confirmed) Active Social History Social History Type Response Smoking Status Never smoker; Tobacc o user in household: No entered on: 06/13/13 Sex
--- OUTSIDE RECORDS SUMMARY | 2023-09-13 05:50 | XMS_ITS | Continuity of Care Document ---
Author Organization [facility] Address [address] [place] [address]- Care Team Providers Care Stove Bottom Worker Name Role Phone Lawson Gallardo MD Primary Care Physician ( [phone] [place] [facility] [place] Date(s): 09/26/22 - 11/01/[address] [address] Attending Physician: Mello Childers MD Admitting [...] 3 Refills, Maintenance, 02/05/22 10:31:00 EST, Suspension, [facility], 170, cm, 10/31/21 11:21:00 [...] Care Nurse Name: Renee Chung RN Position: [facility] RN Member Role: Primary Care Nurse Name: Lawson Gallardo MD Position: [facility] Physician - Primary Care Member Role: PCP Address: Address: [address] [place] [address] 3rd [place] [address]- Name: Anamika Peace RN, Sara Position: [facility] RN Member Role: Primary Care Nurse Care Team Related Persons Name: JOSE GARCES Address: [address] [place] [address] Name: MORA LEWIS Address: home [address] [place] [address]
--- OUTSIDE RECORDS SUMMARY | 2023-09-13 05:50 | XMS_ITS | Continuity of Care Document ---
Author Organization [facility] Adult Address [address] [place] [address]- Care Team Providers Care Hosiery Pairer Name Role Phone Lawson Gallardo MD Primary Care Physician ( [phone] Encounter [facility] [place] Date(s): 03/18/23 - 03/25/[address] [address]- Encounter Diagnosis Epilepsy(Discharge Diagnosis) - 03/18/23 Severe obesity(Discharge Diagnosis) - 03/18/23 Pituitary cyst(Discharge Diagnosis) - 03/18/23 Annual physical exam(Discharge Diagnosis) - 03/18/23 Attending Physician: Lawson Gallardo MD Allergies, Adverse [...] mL, 3 Refills, Maintenance, 03/05/23 13:34:00 EST, [facility], 175, cm, 08/08/22 2:12:00 EDT, Height, 123, kg, 08/07/22 20:32:00 EDT, Dry Weight Start Date: 03/05/23 Status: Ordered Problem List Condition Confirmation Course Effective Dates Status Health St atus Informant Epilepsy Confirmed Active Severe obesity Confirmed Active Diagnosis Diagnosis Type Effective Dates Health Status Cl inical Service Informant Epilepsy Discharge Diagnosis 03/18/23 Severe obesity Discharge Diagnosis 03/18/23 Pituitary cyst Discharge Diagnosis 03/18/23 Annual physical exam Discharge Diagnosis 03/18/23 Procedures Procedure Date Related Diagnosis Body Site Status Pituitary cyst Completed Vital Signs Most recent to oldest [Reference Range]: 1 Height 175 cm (03/18/23 1:33 PM) Weight 130 kg (03/18/23 1:33 PM) Oxygen Saturation [94-100 %] 98 % (03/18/23 1:33 PM) Pulse Rate [55-90 bpm] 86 bpm (03/18/23 1:33 PM) Body Mass Index [18.5-24.99 kg/m2] 42.45 kg/m2 *>HHI* (03/18/23 1:33 PM) Blood Pressure [90-138/55-84 mm Hg] 137/ 84mm Hg (03/18/23 1:33 PM) Mode of Delivery (Oxygen) Room air (03/18/23 1:33 PM) Blood pressure sites Arm, left (03/18/23 1:33 PM) Weight Obtained Via Standing scale (03/18/23 1:33 PM) Social History Social History Type Response Smoking Status Never smoker; Tobacc o user in household: No entered on: 06/13/13 Sex Note * Nighat Guillaume: PERFORM, SIGN, VERIFY Event Display: Patient Education/Instruction Authored Date: [id number] [facility] *[facility] Clinical Summary Name ADWOA CONROY Age 32 Years 1990 PCP Paulina WINN, Lawson PCP Visit Date 03/18/2023 13:21:00 Additional Instructions: Scheduled Appointments?? Future Appointments ?No Future Appointments Scheduled Follow-Up Instructions ?? With: Address: When: Lawson Gallardo [address], [place] [id number] [facility] (1) Comments: 4 months in person f/u Diagnosis Encounter for general adult medical examination without abnormal findings; Encounter for general adult medical examination without abnormal findings; Encounter for screening for infections with a predominantly sexual mode of transmission; Morbid (severe) obesity due to excess calories; Encounter for screening for human immunodeficiency virus [HIV]; Other disorders of pituitary gland; Other disorders of pituitary gland; Epilepsy, unspecified, not intractable, without status epilepticus; Morbid (severe) obesity due to excess calories; Encounter for screening for diabetes mellitus; Encounter forscreening for lipoid disorders; Encounter for screening for other suspected endocrine disorder; Epilepsy, unspecified, not intractable, without status epilepticus Medications: Please continue your medications until treatment is completed or stopped by your provider. Discuss any questions related to medications with your provider. Medications to Continue with No Changes These medications were not printed or sent to your pharmacy Oxcarbazepine (Trileptal 300 mg/5 mL (60 mg/mL) oral suspension) 20 Milliliter Oral twice a day. Refills: 3. Next Dose: Allergy Info:?? Peanuts; Nuts; Bactrim; silver containing compounds Medications Given This Visit Future Orders ?HIV Ab-Ag 4th Generation? Order Date:03/18/23?- Complete within?3 days ?Hepatic Function Panel? Order Date:03/18/23?- Complete by?03/21/23 ?CBC w/ Differential? Order Date:03/18/23?- Complete by?03/21/23 ?Basic Metabolic Panel? Order Date:03/18/23?- Complete by?03/21/23 ?Lipid Panel? Order Date:03/18/23?- Complete by?03/21/23 ?TSH with T4 Reflex (Adults Only)? Order Date:03/18/23?- Complete by?03/21/23 ?Hepatitis C Ab? Order Date:03/18/23?- Complete on or after?03/18/23 ?Urinalysis (Outpt)? Order Date:03/18/23?- Complete by?03/21/23 ?MRI Brain W/O Contrast? Order Date:03/18/23?- Complete by?03/21/23 Vital Signs Height 175 cm Weight 130 kg BMI 42.45 kg/m2 Blood Pressure 137 mm Hg/84 mm Hg Temperature Pulse Rate 86 bpm Respiratory Rate 02 Sat Mode of Delivery 98 %/Room air You can now view a summary of your hospital visit from the comfort of your home through a free online portal called [employer]. [employer] is a website that allows you to securely view your medical information including discharge summary, medications and follow-up visits. ??You can alsosend a secure electronic message to your doctor???s office to request appointments, renew medications or just ask a question. You can enroll at [email or web address] or register during your next office visit. Disclaimer:?? The information provided is of a general nature and is intended to be used in conjunction with the recommendations and advice of your health care practitioner. ??Every effort has been made to ensure that the information provided is accurate and complete at the time it is provided to you however, as your needs change, or, as new ??information becomes available, different or additional instructions may be required. If you have questions, please consult with your primary care provider or pharmacist, as appropriate. ??This information is not intended to serve as substitution for assessment and evaluation by a qualified health care provider. If you do not have a primary care provider, you may find a [facility] provider by calling [employer] Link at [phone]. [facility], in keeping with [facility] guidance, no longer requires face masks for staff, patientsor visitors in most situations. Similar to time spent indoors at other locations, there is the chance that you were exposed to respiratory viruses during your time with us (such as flu or COVID-19).? If you develop symptoms concerning for a viral respiratory infection, please seek testing (and treatment if indicated) from your medical provider or home test kit. For information about the plan of care including goals and instructions for your diagnosis, please see the patient education orders section of this document. Patient Education Materials?? The content of this educational material or handout may have been modified, supplemented, or adapted from its original content and format to support your individualized medical care. Patient Care team information Care Team Personnel Name: Tabby Garces RN Position: [facility] RN Member Role: Primary Care Nurse Name: Renee Chung RN Position: [facility] RN Member Role: Primary Care Nurse Name: Lawson Gallardo MD Position: [facility] Physician - Primary Care Member Role: PCP Address: Address: [address] [facility] 3rd Floor [place], [place] [address] Name: Sara Dejesus RN Position: [facility] RN Member Role: Primary Care Nurse Care Team Related Persons Name: GONSALOTRACEY JOSE Address: [place] [address] [place] [address] Name: MORA LEWIS Address: home [address] [place] [address]
--- OUTSIDE RECORDS SUMMARY | 2023-09-13 05:50 | XMS_ITS | Continuity of Care Document ---
Author Organization [facility] Address [address] [facility], 3[address] d Floor, [address] [place] [address]- Care Team Providers Care Education Diagnostician Name Role Phone Not on Staff, PCP Primary Care Physician Unavail able Encounter [facility] [place] Date(s): 09/15/19 - 10/15/19 [facility] [address], [address] Floor, [address] [place] [address]- [facility] Allergies, Adverse Reactions, Alerts Substance Reaction Severity Status Peanuts Active Medications Trileptal 300 mg/5 mL (60 mg/mL) oral suspension 20 mL = 1,200 mg, By Mouth, 2 times a day, BRAND NAME ONLY. NO SUBSTITUTIONS. MEDICALLY NECESSARY.,# 1,200 mL, 11 Refills, Maintenance, 06/20/19 15:10:00 EDT, Suspension, [facility], Cannot use generic, increased seizures., 175, cm,... Start Date: 06/20/19 Stop Date: 06/14/20 Status: Ordered Vitamin D3 2000 intl units oral capsule 1 capsule = 2,000 International_Units, By Mouth, Daily, # 30 capsule, 11 Refills, Maintenance, 06/20/19 15:11:00 EDT, [facility], 175, cm, 06/16/18 13:43:00 EDT, Height Start Date: 06/20/19 Stop Date: 06/14/20 Status: Ordered Problem List Condition Effective Dates Status Health Status Inform ant CVA - Cerebrovascular accident(Confirmed) Active Epilepsy(Confirmed) Active Social History Social History Type Response Smoking Status Never smoker; Tobacc o user in household: No entered on: 06/13/13 Sex
--- OUTSIDE RECORDS SUMMARY | 2023-09-13 05:50 | XMS_ITS | Continuity of Care Document ---
Author Organization [facility] Address [address] [place] [address]- Care Team Providers Care Aerosol Supervisor Name Role Phone Paulina WINN, [facility] Primary Care Physician Encounter [facility] Date(s): 03/13/23 - 04/12/[address] [address]- Allergies, Adverse Reactions, Alerts Substance Reaction Severity [...] mL, 3 Refills, Maintenance, 03/05/23 13:34:00 EST, [facility], 175, cm, 08/08/22 2:12:00 [...] Team Personnel Name: Tabby Garces RN Position: [facility] RN Member Role: Primary Care Nurse Name: Renee Chung RN Position: [facility] SN RN Member Role: Primary Care Nurse Name: Lawson Gallardo MD Position: [facility] Physician - Primary Care Member Role: PCP Address: Address: [address] [place] [address] [address] [place], [place] [address] Name: Sara Dejesus RN Position: [facility] RN Member Role: Primary Care Nurse Care Team Related Persons Name: JOSE GARCES Address: home [address] [place] [address] Name: MORA LEWIS Address: home [address] [place] [address]
--- OUTSIDE RECORDS SUMMARY | 2023-09-13 05:50 | XMS_ITS | Continuity of Care Document ---
Author Organization [facility] Address [address] [place] [address]- Care Team Providers Care Office Messenger Helper Name Role Phone Paulina WINN, [facility] Primary Care Physician Encounter [facility] [place] Date(s): 04/04/20 - 05/04/20 [facility] [address] [place] [address]- Allergies, Adverse Reactions, Alerts Substance Reaction Severity Status silver containing compounds Rash Active Bactrim 1 Active Nuts Severe Active Peanuts Active 1thrombocytonpenia Medications Trileptal 300 mg/5 mL (60 mg/mL) oral suspension 20 mL = 1,200 mg, By Mouth, 2 times a day, BRAND NAME ONLY. NO SUBSTITUTIONS. MEDICALLY NECESSARY.,# 1,200 mL, 11 Refills, Maintenance, 06/20/19 15:10:00 EDT, Suspension, [facility], Cannot use generic, increased seizures., 175, cm,... Start Date: 06/20/19 Stop Date: 06/14/20 Status: Ordered Problem List Condition Effective Dates Status Health Status Inform ant CVA - Cerebrovascular accident(Confirmed) Active Epilepsy(Confirmed) Active Social History Social History Type Response Smoking Status Never smoker; Tobacc o user in household: No entered on: 06/13/13 Sex
--- OUTSIDE RECORDS SUMMARY | 2023-09-13 05:50 | XMS_ITS | Continuity of Care Document ---
Author Organization [facility] Adult Address [address] [place] [address]- Care Team Providers Care Captain Waiter Name Role Phone Paulina WINN, [facility] Primary Care Physician Encounter [facility] Date(s): 03/13/23 - 04/12/[address] [address]- Allergies, Adverse Reactions, Alerts Substance Reaction Severity [...] mL, 3 Refills, Maintenance, 03/05/23 13:34:00 EST, [facility], 175, cm, 08/08/22 2:12:00 EDT, [...] Team Personnel Name: Tabby Garces RN Position: [facility] RN Member Role: Primary Care Nurse Name: Renee Chung RN Position: [facility] SN RN Member Role: Primary Care Nurse Name: Lawson Gallardo MD Position: [facility] Physician - Primary Care Member Role: PCP Address: Address: [address] [place] [address] [address] [place], [place] [address] Name: Sara Dejesus RN Position: [facility] RN Member Role: Primary Care Nurse Care Team Related Persons Name: JOSE GARCES Address: [address] [place] [address] Name: MORA LEWIS Address: home [address] [place] [address]
--- OUTSIDE RECORDS SUMMARY | 2023-09-13 05:50 | XMS_ITS | Continuity of Care Document ---
Author Organization [facility] Adult Address [address] [place] [address]- Care Team Providers Care Performance Specialist Name Role Phone Paulina WINN, [facility] Primary Care Physician En[place] [facility] [place] Date(s): 03/20/23 - 04/19/23 [facility] [address] [place] [address]- Allergies, Adverse Reactions, Alerts Substance Reaction Severity [...] mL, 3 Refills, Maintenance, 03/05/23 13:34:00 EST, [facility], 175, cm, 08/08/22 2:12:00 [...] Team Personnel Name: Tabby Garces RN Position: [facility] RN Member Role: Primary Care Nurse Name: Renee Chung RN Position: [facility] SN RN Member Role: Primary Care Nurse Name: Lawson Gallardo MD Position: [facility] Physician - Primary Care Member Role: PCP Address: Address: [address] [place] [address] [address] [place], [place] [address] Name: Sara Dejesus RN Position: [facility] RN Member Role: Primary Care Nurse Care Team Related Persons Name: JOSE GARCES Address: home [address] [place] [address] Name: MORA LEWIS Address: home [address] [place] [address]
--- OUTSIDE RECORDS SUMMARY | 2023-09-13 05:50 | XMS_ITS | Continuity of Care Document ---
Author Organization [facility] Adult Address [address] [place] [address]- Care Team Providers Care Distributor Publications Name Role Phone Lawson Gallardo MD Primary Care Physician [place] [facility] [place] [id number] Date(s): 04/18/23 - 08/16/[address] [address]- Attending Physician: Lawson Gallardo MD Allergies, Adverse [...] mL, 3 Refills, Maintenance, 03/05/23 13:34:00 EST, [facility], 175, cm, 08/08/22 2:12:00 [...] Team Personnel Name: Tabby Garces RN Position: [facility] RN Member Role: Primary Care Nurse Name: Renee Chung RN Position: [facility] SN RN Member Role: Primary Care Nurse Name: Lawson Gallardo MD Position: [facility] Physician - Primary Care Member Role: PCP Address: Address: [address] [place] [address]- Name: Anamika Peace RN, Sara Position: [facility] RN Member Role: Primary Care Nurse Care Team Related Persons Name: JOSE GARCES Address: home [address] [place] [address] Name: MORA LEWIS Address: home [address] [place] [address]
--- OUTSIDE RECORDS SUMMARY | 2023-09-13 05:50 | XMS_ITS | Continuity of Care Document ---
Author Organization [facility] Address [address] [facility], 3r d Floor, [address] [place] [id number]- Care Team Providers Care Relay Checker Name Role Phone Paulina WINN, [facility] Primary Care Physician [place] [facility] [place] - [place]/18/20 [facility] [address] [place], 3rd Floor, [address] [place] [id number] Allergies, Adverse Reactions, Alerts Substance Reaction Severity Status silver containing compounds Rash Active Bactrim 1 Active Nuts Severe Active Peanuts Active 1thrombocytonpenia Medications Trileptal 300 mg/5 mL (60 mg/mL) oral suspension 20 mL = 1,200 mg, By Mouth, 2 times a day, BRAND NAME ONLY. NO SUBSTITUTIONS. MEDICALLY NECESSARY.,# 1,200 mL, 11 Refills, Maintenance, 06/20/19 15:10:00 EDT, Suspension, [facility], Cannot use generic, increased seizures., 175, cm,... Start Date: 06/20/19 Stop Date: 06/14/20 Status: Ordered Problem List Condition Effective Dates Status Health Status Inform ant CVA - Cerebrovascular accident(Confirmed) Active Epilepsy(Confirmed) Active Social History Social History Type Response Smoking Status Never smoker; Tobacc o user in household: No entered on: 06/13/13 Sex
--- OUTSIDE RECORDS SUMMARY | 2023-09-13 05:50 | XMS_ITS | Continuity of Care Document ---
Author Organization [facility] Adult Address [address] [place] [address]- Care Team Providers Care Wood Machinist Name Role Phone Paulina WINN, [facility] Primary Care Physician Encounter [facility] Date(s): 03/04/23 - 04/03/23 [facility] [address] [place] [id number]- Allergies, Adverse Reactions, Alerts Substance Reaction Severity [...] mL, 3 Refills, Maintenance, 03/05/23 13:34:00 EST, [facility], 175, cm, 08/08/22 2:12:00 EDT, [...] Team Personnel Name: Tabby Garces RN Position: [facility] RN Member Role: Primary Care Nurse Name: Renee Chung RN Position: [facility] SN RN Member Role: Primary Care Nurse Name: Lawson Gallardo MD Position: [facility] Physician - Primary Care Member Role: PCP Address: Address: [address] [place] [address] [address] [place], [place] [id number] Name: Sara Dejesus RN Position: [facility] RN Member Role: Primary Care Nurse Care Team Related Persons Name: JOSE GARCES Address: home [address] [place] [address] Name: MORA LEWIS Address: home [address] [place] [address]
--- NOTE | 2023-09-13 05:52 | ED_ITS ---
HPI - General Adult General Chief complaint: Dyspnea Stated complaint: heavy to breathe Time Seen by Provider: 09/13/23 05:52 History of Present Illness ED Provider: Rowan RYAN narrative: The patient is a 33-year-old male with a history of obesity and a recent diagnosis of obstructive sleep apnea. The patient says that yesterday afternoon he felt as though he had something stuck in his throat as if something had gone down his windpipe. He coughed for awhile but felt like something was stuck and that he was short of breath. Ultimately he came to the emergency room for this problem. He is still feeling somewhat short of breath. He no longer really feels like something is stuck in his windpipe. The patient says that he has had worsening edema both lower extremities for a few weeks. He says there is a family history of problems with congestive heart failure. He denies using any supplements or herbal preparations. Related Data Home Medications ?Medication ?Instructions ?Recorded ?Confirmed clobetasol 0.05 % scalp solution 1 appl topical .every other days 05/27/23 09/11/23 oxcarbazepine 300 mg/5 mL (60 1,200 mg PO BID 05/27/23 09/11/23 mg/mL) oral suspension (Trileptal) Previous Rx's ?Medication ?Instructions ?Recorded albuterol sulfate 90 mcg/actuation 2 puff inhalation Q4-6H PRN 09/13/23 aerosol inhaler shortness of breath or wheezing #8.5 grams azithromycin 250 mg tablet 250 mg PO DAILY 4 days #4 tabs 09/13/23 prednisone 20 mg tablet 40 mg (2 x 20 mg) PO DAILY 4 days 09/13/23 #8 tabs Allergies Allergy/AdvReac Type Severity Reaction Status Date / Time silver Allergy Intermediate skin Verified 09/13/23 05:16 irritations nut - unspecified Allergy Cough Verified 09/13/23 05:16 sulfamethoxazole Allergy Unknown Verified 09/13/23 05:16 [From Bactrim] trimethoprim [From Bactrim] Allergy Unknown Verified 09/13/23 05:16 Latex Exam Gloves Allergy Unknown skin Uncoded 09/13/23 05:16 irritation peanuts AdvReac Unknown N/V Uncoded 09/13/23 05:16 Review of Systems 2 Review of Systems: Yes all other systems are reviewed and are negative PMFSH Past Medical History Medical History Insomnia Endogenous depression High risk sexual behavior Seborrheic dermatitis Obstructive sleep apnea Pituitary abnormality Seizure Surgical History History of surgery Social History Social History Housing: Condominium Alcohol intake: current Alcohol intake frequency: does not drink Patient Tobacco Use Status: Never used Tobacco Smoked in Last 30 Days: No e-Cigarette/Vaping Use: Never Used Second Hand Smoke Exposure: No Use of substances other than those prescribed or required for medical reasons: No Advance Directives: No Advance Directives Information Provided: No Do you have a plan to hurt others: No Plan service: No Current occupational status: employed Cognitive needs: No Hearing needs: No Vision needs: Yes (Glasses) Physical Exam ED Vital Signs: Vital Signs - 24 hr 09/13/23 05:15 09/13/23 06:14 09/13/23 07:00 Temperature 98.8 F 97.5 F Pulse Rate 105 H 98 90 Respiratory Rate 16 18 Blood Pressure 135/85 135/87 Pulse Oximetry 94 96 Oxygen Delivery Method Room Air Room Air BMI result Body Mass Index 47.1 Const Other: The patient is a 33-year-old male with a BMI of 47. He is awake and alert. He is pleasant and cooperative. He did not appear in overt distress. HENMT Other: Face is symmetrical. Mucous membranes moist. The pharynx is normal. Eyes Other: Pupils are round equal, conjunctivae clear Neck Neck: Yes no JVD Resp Other: No increased work of breathing. The patient had inspiratory and expiratory wheezes bilaterally. Cardio Rate: regular rate Rhythm: regular rhythm Heart sounds: S1 normal heart sound present and S2 normal heart sound present GI Other: Abdomen is soft and nontender. Skin Other: Skin is dry and unremarkable Neuro Other: The patient is awake and alert. He has a pleasant demeanor. Cranial nerves are grossly intact. He moves all extremities normally and has a normal gait. He seems neurologically intact. Extrem Other: There is some edema to both lower legs which is not obviously pitting. Medications Administered Discontinued Medications Generic Name Dose Route Start Last Admin Trade Name Freq PRN Reason Stop Dose Admin Albuterol Sulfate 2 puff 08/04/24 06:35 09/13/23 06:53 Albuterol Sulfate 90 Mcg 8 Gm Inhaler INHALE 09/13/23 06:36 2 puff ONCE ONE Administration Albuterol/Ipratropium 3 ml 09/13/23 06:00 09/13/23 06:10 Albuterol/Iprat 2.5/0.5mg 3 Ml Ampul.Neb INHALE 09/13/23 06:01 3 ml ONCE ONE Administration Azithromycin 500 mg 09/13/23 06:36 09/13/23 06:52 Azithromycin 500 Mg Tablet PO 09/13/23 06:37 500 mg ONCE ONE Administration Prednisone 60 mg 09/13/23 06:36 09/13/23 06:53 Prednisone 20 Mg Tablet PO 09/13/23 06:37 60 mg ONCE ONE Administration Medical Decision Making Medical Decision Making [facility] Narrative: The patient is a chacon looking 33-year-old who presents with shortness of breath. His description of his symptoms was somewhat odd in that he said like he felt like he had something stuck in his airway. On physical exam he has wheezes in both lungs. He also has some edema of his lower legs that he says has been present for only a few weeks. He says that he had asthma as a child but has not used an inhaler in decades. The patient was given a DuoNeb updraft with significant improvement in his symptoms and improvement in his breath sounds. The patient was instructed in the use of an inhaler with an AeroChamber. He will be discharged with a prescription for an albuterol MDI, prednisone and azithromycin. He should follow up with his regular doctor. I think it is much more likely that this is a case of asthmatic bronchitis than either a manifestation of cardiomyopathy or pulmonary embolism. EKG shows slight sinus tachycardia but is otherwise normal. CBC and BMP are unremarkable. Troponin is negative. BNP is negative. Lab Data 09/13/23 05:37 09/13/23 05:37 Labs: Lab Results 09/13/23 09/13/23 Range/Units 05:37 06:08 WBC 8.7 (4.8-10.8) X10*3/uL RBC 4.79 (4.60-5.80) X10*6/uL Hgb 13.9 L (14.0-18.0) g/dl Hct 41.8 L (42.0-52.0) % MCV 87.3 (80.0-98.0) fL MCH 29.0 (27.0-33.0) pg MCHC 33.3 (31.0-36.0) g/dl RDW 12.7 (11.0-16.0) % Plt Count 234 (160-400) X10*3/uL MPV 8.8 L (9.4-12.4) fL Immature Gran % (Auto) 0.7 H (0.0-0.4) % Neut % (Auto) 53.5 (45-73) % Lymph % (Auto) 31.6 (20-40) % [place] % (Auto) 11.3 H (2-11) % Eos % (Auto) 2.2 (0-4) % Baso % (Auto) 0.7 (0-2) % Lymph # (Auto) 2.8 (1.2-4.9) X10*3/uL [place] # (Auto) 1.0 (0.1-1.2) X10*3/uL Eos # (Auto) 0.2 (0.0-0.4) X10*3/uL Baso # (Auto) 0.1 (0.0-0.2) X10*3/uL Abs Immat Gran (auto) 0.06 H (0.00-0.03) X10*3/uL Absolute Neuts (auto) 4.7 (2.0-8.3) x10*3/uL Absolute Nucleated RBC 0.000 (0.0-0.012) X10*3/uL Nucleated RBC % (auto) 0.0 (0.0-0.2) /100WBC Sodium 139 (135-145) mmol/L Potassium 4.1 (3.3-5.1) mmol/L Chloride 109 H (96-108) mmol/L Carbon Dioxide 21 L (22-29) mmol/L Anion Gap 13 (12-20) BUN 18 H (9-16) mg/dL Creatinine 1.04 (0.5-1.4) mg/dL Estim Creat Clear Calc 134.6 Estimated GFR > 60 Random Glucose 131 H (60-115) mg/dL Calcium 9.2 (8.4-10.2) mg/dL Total Bilirubin 0.3 (0.0-1.0) mg/dL AST 22 (5-37) U/L ALT 42 H (0-40) U/L Alkaline Phosphatase 58 (39-117) U/L Troponin I High Sens < 2.7 (<3.5-35.0) ng/L B-Natriuretic Peptide < 10 (<100) pg/mL Total Protein 7.0 (6.5-8.0) g/dL Albumin 3.9 (3.5-5.0) g/dL Influenza Type A (PCR) NEGATIVE (Negative) Influenza Type B (PCR) NEGATIVE (Negative) RSV RNA Qual (PCR) NEGATIVE (Negative) SARS-CoV-2 RNA (RT-PCR) NEGATIVE (Negative) Independent Interpretation I performed an independent interpretation of an: EKG Interpretation: EKG at 05:22 shows sinus tachycardia at 101 beats per minute. Otherwise normal EKG. Discharge Plan Discharge Clinical Impression: Acute asthmatic bronchitis Patient Disposition: Home, Self-Care Instructions: Asthma (ED), How to Use a Metered-Dose Inhaler and a Spacer (ED) Additional Instructions: I believe that your symptoms are likely a result of some degree of asthmatic bronchitis. I have sent a prescription for an albuterol inhaler that you may use every 4-6 hours as needed for wheezing and shortness of breath. You may take 2-4 puffs per dose. Additionally you were started on a course of prednisone and the antibiotic azithromycin. Please take these medications once a day until done. Next dose is tomorrow morning for each of these medications. Please contact your regular doctor's office on Thursday to make a prompt follow up appointment to discuss these symptoms further. Return to the emergency room if you feel significantly worse. Prescriptions: New prednisone 20 mg tablet 40 mg PO DAILY 4 Days Qty: 8 0RF azithromycin 250 mg tablet 250 mg PO DAILY 4 Days Qty: 4 0RF Rx Instructions: start on day 2 of therapy albuterol sulfate 90 mcg/actuation HFA aerosol inhaler 2 puff inhalation Q4-6H PRN (Reason: shortness of breath or wheezing) Qty: 8.5 0RF No Action oxcarbazepine [Trileptal] 300 mg/5 mL (60 mg/mL) suspension 1,200 mg PO BID clobetasol 0.05 % solution 1 appl topical .every other days Referrals: Alex Bond MD [Primary Care Provider] - (shortness of breath, asthmatic bronchitis) Interventions: ED Discharge Assessment Last Done: 09/13/23 07:00 Discharge Date/Time: 09/13/23 07:03 Print Language: Nepali
[2023-09-13 06:01] LABS: Alanine Aminotransferase 42 U/L (0-40); Albumin Level 3.9 g/dL (3.5-5.0); Alkaline Phosphatase 58 U/L (39-117); Anion Gap 13 (12-20); Aspartate Amino Transferase 22 U/L (5-37); Bilirubin Total 0.3 mg/dL (0.0-1.0); Blood Urea Nitrogen 18 mg/dL (9-16); Calcium 9.2 mg/dL (8.4-10.2); Carbon Dioxide 21 mmol/L (22-29); Chloride 109 mmol/L (96-108); Creatinine Clr Calc Pharmacy 134.6; Estimated Glomerular Filt Rate > 60; Glucose Random 131 mg/dL (60-115); Potassium 4.1 mmol/L (3.3-5.1); Sodium 139 mmol/L (135-145)
[2023-09-13] MEDS: Albuterol/Iprat 2.5/0.5MG 3 ML AMPUL.NEB INHALE (06:10)
[2023-09-13 06:14] VITALS: PULSE 98; O2SAT 9720
[2023-09-13 06:15] LABS: Troponin-I High Sensitivity < 2.7 ng/L (<3.5-35.0)
[2023-09-13 06:27] LABS: B Type Natriuretic Peptide < 10 pg/mL (<100)
[2023-09-13 06:48] LABS: Influenza A PCR NEGATIVE (Negative); Influenza B PCR NEGATIVE (Negative); Resp Syncy Virus RNA Qual PCR NEGATIVE (Negative); SARS COV2 PCR INHOUSE NEGATIVE (Negative)
[2023-09-13] MEDS: Azithromycin 500 MG TABLET PO (06:52)
[2023-09-13] MEDS: Albuterol Sulfate 90 MCG 8 GM INHALER 2 PUFF INHALE (06:53)
[2023-09-13] MEDS: predniSONE 20 MG TABLET 60 MG PO (06:53)
[2023-09-13 07:00] VITALS: BP 135/87; PULSE 90; RESP 18; TEMP 36.4; O2SAT 96
== END 2023-09-13 07:03 | disposition home or self-care (01) ==
PROVIDERS: Emergency Provider Emergency Medicine; PCP Internal Medicine
DX: J45.909 Unspecified asthma, uncomplicated (principal); R06.02 Shortness of breath; G47.33 Obstructive sleep apnea (adult) (pediatric); R00.0 Tachycardia, unspecified; R00.2 Palpitations; R60.0 Localized edema; Z03.818 Encounter for observation for suspected exposure to other biological agents ruled out; Z79.899 Other long term (current) drug therapy
CPT/HCPCS: 0241U; 36415; 71046; 80053; 83880; 84484; 85025; 93005; 94640; 99284; 99285

== ENCOUNTER → 2023-09-13 05:23 | Outpatient (BNV) | payer OTHER, SELFPAY | PROVIDERS: Emergency Provider Emergency Medicine; PCP Internal Medicine; Visit Provider Internal Medicine Cardiovascular Disease | DX: R00.2 Palpitations (principal) | CPT/HCPCS: 93010 ==

== ENCOUNTER 2023-09-29 08:23 | Outpatient (REF) | payer OTHER, SELFPAY ==
--- NOTE | ~2023-09-29 | US_ITS ---
EXAMINATION: US COMPLETE ABDOMEN WITH LIVER ELASTOGRAPHY CLINICAL INFORMATION: Morbid obesity. COMPARISON: None available. TECHNIQUE: Real-time imaging of the abdominal viscera. Noninvasive ultrasound liver fibrosis assessment is performed using Mayte ElastPQ point quantification shear wave elastography (pSWE) with a C5-2 MHz transducer. Multiple elastography samples are obtained. FINDINGS: PANCREAS: Pancreas could not be evaluated secondary to overlying bowel gas. ABDOMINAL AORTA: The proximal and middle aortic segments are normal in caliber. The distal aorta was obscured by bowel gas. INFERIOR VENA CAVA: Visualized portions are normal. LIVER: Liver is enlarged with increased echogenicity consistent with hepatic steatosis. No focal lesion or intrahepatic biliary duct dilatation. The right lobe measures 19.3 cm in length. The left lobe measures 16.6 cm in length. Portal flow is towards the liver (hepatopetal). Shear wave liver elastography median stiffness is 1.54 m/s (reference: normal median stiffness is 1.3 m/s or less). IQR/median stiffness to assess sampling precision is 0.12 (reference: good quality data set is IQR/median stiffness of 0.15 or less). GALLBLADDER: Normal. The gallbladder is physiologically distended without evidence of stones, sludge, polyps, wall thickening or pericholecystic fluid. COMMON BILE DUCT: Not seen. RIGHT KIDNEY: Normal. No hydronephrosis. No renal calculi or focal parenchymal lesions. The kidney measures 10.9 cm in maximum dimension. LEFT KIDNEY: Normal. No hydronephrosis. No renal calculi or focal parenchymal lesions. The kidney measures 11.5 cm in maximum dimension. SPLEEN: Normal. The spleen measures 8.8 cm in maximum dimension. FREE FLUID: None. US/US abdomen comp w elastography IMPRESSION: 1. Enlarged fatty liver. 2. Liver Elastography: In the absence of other known clinical signs, measurements rule out compensated advanced chronic liver disease. If there are known clinical signs, further testing may be needed for confirmation. REFERENCE: Society of Radiologists in Ultrasound Liver Stiffness Thresholds (2020): LIVER STIFFNESS THRESHOLDS: *Liver Stiffness equal or less than 1.3 m/s: High probability of being normal. *Liver Stiffness less than 1.7 m/s: In the absence of other known clinical signs, rules out compensated advanced chronic liver disease. *Liver Stiffness 1.7-2.1 m/s: Suggestive of compensated advanced chronic liver disease but need further test for confirmation. *Liver Stiffness over 2.1 m/s: Rules in compensated advanced chronic liver disease. *Liver Stiffness over 2.4 m/s: Suggestive of clinically significant portal hypertension. QUALITY OF DATA SET: *IQR/Median value equal or less than 0.15 implies a quality data set. *IQR/Median value over 0.15 implies a poor quality data set. SIGNIFICANT CHANGE FROM PRIOR EXAM: Significant change if liver stiffness measurement is 10% or greater from prior exam. OTHER CONSIDERATIONS: The stage of liver fibrosis may be overestimated in the setting of acute hepatitis, liver inflammation, elevated liver function tests, hepatic vascular congestion, obstructive cholestasis, non-fasting state, and infiltrative diseases such as amyloidosis and lymphoma. In some patients with NAFLD, the liver stiffness thresholds for compensated advanced chronic liver disease may be lower. In causes other than viral hepatitis and NAFLD, liver stiffness thresholds are not well established. Electronically signed by: Krishna Segal MD 10/15/2023 09:56 PM EDT
== END 2023-09-29 08:24 | disposition home or self-care (01) ==
LOC: HO.US 08:23
PROVIDERS: PCP Internal Medicine; Visit Provider Physician Assistant Surgical
DX: E66.01 Morbid (severe) obesity due to excess calories (principal)
CPT/HCPCS: 76700; 76981

== ENCOUNTER 2023-10-15 09:30 | Outpatient (AMB) | payer OTHER, SELFPAY ==
--- NOTE | 2023-10-15 09:17 | MHC.OFFVISWM ---
VS Expanded 10/15/23 09:18 Height 5 ft 7 in Weight 288 lb 4 oz BMI 45.1 Intake Visit Reasons: (TV) F/U SWL Allergies silver Allergy (Intermediate, Verified 09/13/23 05:16) skin irritations nut - unspecified Allergy (Verified 09/13/23 05:16) Cough sulfamethoxazole [From Bactrim] Allergy (Verified 09/13/23 05:16) Unknown trimethoprim [From Bactrim] Allergy (Verified 09/13/23 05:16) Unknown Latex Exam Gloves Allergy (Unknown, Uncoded 09/13/23 05:16) skin irritation peanuts Adverse Reaction (Unknown, Uncoded 09/13/23 05:16) N/V HPI Comments Details: Patient is a 33-year-old male who returns to the office today in follow-up. He was initially seen on 09/11/2023 with a weight of 301.6 lb and a BMI of 44.6. With me reports weight is 288.4 with a BMI of 45.1. He has lost 13.2 lb or 4.3% total body weight loss. He is using the right [employer] yadira Meal plan: premier protein RTD shake 8-10 shake, 10-12 shake 1-3 shake 4-6 shake 7-9 Exercise plan: home weight exercises. Trying to use the gym here at [place], but due to transportation issues and his need to get the bus home, this has not been very successful. States that he certainly could joined [employer] fitness gym in [facility] Medical History Insomnia Endogenous depression High risk sexual behavior Seborrheic dermatitis Obstructive sleep apnea Pituitary abnormality Seizure Surgical History History of surgery Social History Housing: Condominium Alcohol intake: current Alcohol intake frequency: does not drink Patient Tobacco Use Status: Never used Tobacco e-Cigarette/Vaping Use: Never Used Second Hand Smoke Exposure: No service: No Current occupational status: employed Cognitive needs: No Hearing needs: No Vision needs: Yes (Glasses) Telehealth Telehealth Telehealth Platform: Telephone Location of provider rendering services: practice address Location of patient: address on file Patient Identification confirmed using: Name, : Yes Telehealth method: voice only Patient verbally consented to treatment: Yes Patient verbally consented to billing insurance company: Yes Patient informed of any privacy concerns related to visit: Yes Minutes spent on Phone/Video with Pt.: 15 Assessment & Plan Assessment & Plan (1) Morbid obesity: Code(s): E66.01 - Morbid (severe) obesity due to excess calories Category: Medical Plan: Overall, making good progress. Discussed the importance of updating his weight in the yadira and redoing the plan and looking at it very closely as I suspect he is having too many shakes or too much of the shake. He will do this and send me a screen shot. Additionally, discussed the importance of exercise. He will look into joining [employer] fitness gym in addition to home cardio videos until he can join the gym. Then certainly utilizing the cardio equipment at the gym including stationary bike, elliptical, treadmill with a goal of tracking his calories and burning 300 per day. He was reminded of upcoming appointments. Return to clinic 1 month.
[2023-10-15 09:18] VITALS: BMI 45.1
== END 2023-10-15 09:32 | disposition home or self-care (01) ==
LOC: HO.HBS 09:30
PROVIDERS: PCP Internal Medicine; Visit Provider Physician Assistant Surgical
DX: E66.01 Morbid (severe) obesity due to excess calories (principal)
CPT/HCPCS: 99213

== ENCOUNTER → 2023-10-15 09:30 | Outpatient (BNVA) | payer OTHER, SELFPAY | PROVIDERS: PCP Internal Medicine; Visit Provider Physician Assistant Surgical ==

== ENCOUNTER 2024-02-12 02:40 | Emergency (ER) | payer OTHER, SELFPAY ==
--- NOTE | ~2024-02-12 | XR_ITS ---
CLINICAL HISTORY: sob 1 view chest x-ray Comparison: 09/13/2023 Findings: The lungs are clear. Normal size heart. No acute fracture. IMPRESSION: 1. No acute findings. This document has been electronically signed by: Dwayne Blanco MD on 02/12/2024 04:47:25
[2024-02-12 02:42] VITALS: BP 118/71; PULSE 113; RESP 20; TEMP 36.7; O2SAT 99; BMI 36.8
[2024-02-12 03:43] LABS: Influenza A PCR NEGATIVE (Negative); Influenza B PCR NEGATIVE (Negative); Resp Syncy Virus RNA Qual PCR NEGATIVE (Negative); SARS COV2 PCR INHOUSE NEGATIVE (Negative)
[2024-02-12 04:00] VITALS: O2SAT 98
[2024-02-12 04:22] LABS: IDNOW Serial# 58CA691E; Strep A Nucleic Acid Negative (Negative)
--- NOTE | 2024-02-12 05:29 | ED.URI ---
HPI - URI/Sore Throat General Chief Complaint: Upper Respiratory Symptoms Stated Complaint: flu like Time Seen by Provider: 02/12/24 04:58 Source: patient Mode of arrival: ambulatory Limitations: no limitations History of Present Illness ED Provider: HPI Narrative: Patient with history of sleep apnea comes here for cough throat irritation started just prior to arrival also has body aches subjective headaches and fever Related Data Home Medications ?Medication ?Instructions ?Recorded ?Confirmed clobetasol 0.05 % scalp solution 1 appl topical .every other days 05/27/23 11/03/23 oxcarbazepine 300 mg/5 mL (60 1,200 mg PO BID 05/27/23 11/03/23 mg/mL) oral suspension (Trileptal) Previous Rx's ?Medication ?Instructions ?Recorded albuterol sulfate 90 mcg/actuation 2 puff inhalation Q4-6H PRN 09/13/23 aerosol inhaler shortness of breath or wheezing #8.5 grams albuterol sulfate 90 mcg/actuation 2 puff inhalation Q6H PRN 02/12/24 aerosol inhaler shortness of breath or wheezing #8.5 grams azithromycin 500 mg tablet 500 mg PO DAILY 3 days #3 tabs 02/12/24 (Zithromax) Allergies Allergy/AdvReac Type Severity Reaction Status Date / Time latex Allergy Intermediate skin Verified 02/12/24 02:45 irritation nut - unspecified Allergy Intermediate Cough Verified 02/12/24 02:45 peanut Allergy Intermediate Nausea and Verified 02/12/24 02:45 Vomiting silver Allergy Intermediate skin Verified 02/12/24 02:45 irritations sulfamethoxazole Allergy Unknown Unknown Verified 02/12/24 02:45 [From Bactrim] trimethoprim [From Bactrim] Allergy Unknown Unknown Verified 02/12/24 02:45 Review of Systems Review of Systems: Yes all other systems are reviewed and are negative PMFSH Past Medical History Medical History Insomnia Endogenous depression High risk sexual behavior Seborrheic dermatitis Obstructive sleep apnea Pituitary abnormality Seizure Surgical History History of surgery Social History Social History Housing: Condominium Alcohol intake: current Alcohol intake frequency: does not drink Patient Tobacco Use Status: Never used Tobacco e-Cigarette/Vaping Use: Never Used Second Hand Smoke Exposure: No service: No Current occupational status: employed Cognitive needs: No Hearing needs: No Vision needs: Yes (Glasses) Physical Exam Vital Signs: Vital Signs: Last Vital Signs Temp 98.0 F 02/12/24 06:10 Pulse 96 02/12/24 06:10 Resp 20 02/12/24 06:10 BP 148/70 H 02/12/24 06:10 Pulse Ox 98 02/12/24 06:10 O2 Del Method Room Air 02/12/24 06:10 BMI result Body Mass Index 36.8 Appearance: Alert. Oriented X3. No acute distress. ENT: Pharynx slight erythema. Oral Mucosa moist Neck: Normal inspection. Neck supple. CVS: Normal heart rate and rhythm. Pulses normal. Respiratory: No respiratory distress. Equal air entry bilateral, no wheezing/rales/rhonchi prolonged expiration with frequent cough Skin: Skin warm and dry. Normal skin color. Normal skin turgor. Extremities: No lower extremity edema. Neuro: Oriented X 3. Medications Administered Discontinued Medications Generic Name Dose Route Start Last Admin Trade Name Freq PRN Reason Stop Dose Admin Albuterol/Ipratropium 3 ml 02/12/24 05:16 02/12/24 05:56 Albuterol/Iprat 2.5/0.5mg 3 Ml Ampul.Neb INHALE 02/12/24 05:17 3 ml ONCE ONE Administration Medical Decision Making Lab Data MDM Lab Attestation statement: I reviewed the patient's lab results. Labs: Lab Results 02/12/24 02/12/24 Range/Units 03:01 03:58 Influenza Type A (PCR) NEGATIVE (Negative) Influenza Type B (PCR) NEGATIVE (Negative) RSV RNA Qual (PCR) NEGATIVE (Negative) SARS-CoV-2 RNA (RT-PCR) NEGATIVE (Negative) S. pyogenes GrpA REGINA Negative (Negative) Discharge Plan Discharge Clinical Impression: Bronchitis Patient Disposition: Home, Self-Care Instructions: Acute Bronchitis (ED) Additional Instructions: Drink plenty of fluids Use inhaler as advised Use your CPAP machine Tylenol/Motrin for body aches/fever Antibiotic as prescribed Prescriptions: New albuterol sulfate 90 mcg/actuation HFA aerosol inhaler 2 puff inhalation Q6H PRN (Reason: shortness of breath or wheezing) Qty: 8.5 0RF azithromycin [Zithromax] 500 mg tablet 500 mg PO DAILY 3 Days Qty: 3 0RF No Action albuterol sulfate 90 mcg/actuation HFA aerosol inhaler 2 puff inhalation Q4-6H PRN (Reason: shortness of breath or wheezing) Qty: 8.5 0RF oxcarbazepine [Trileptal] 300 mg/5 mL (60 mg/mL) suspension 1,200 mg PO BID clobetasol 0.05 % solution 1 appl topical .every other days Stand Alone Forms: Work/School Release Interventions: ED Discharge Assessment Last Done: 02/12/24 06:10 Discharge Date/Time: 02/12/24 06:11 Print Language: [place]
[2024-02-12 05:52] VITALS: BP 144/84; PULSE 96; RESP 14; TEMP 37.6; O2SAT 96
[2024-02-12] MEDS: Albuterol/Iprat 2.5/0.5MG 3 ML AMPUL.NEB INHALE (05:56)
[2024-02-12 05:59] VITALS: PULSE 111; RESP 18; O2SAT 97
--- NOTE | 2024-02-12 06:08 | PC.NURSE ---
Reviewed discharge instructions with pt. pt verbalized understanding, no sign of respiratory distress.
[2024-02-12 06:10] VITALS: BP 148/70; PULSE 96; RESP 20; TEMP 36.7; O2SAT 98
== END 2024-02-12 06:11 | disposition home or self-care (01) ==
PROVIDERS: Emergency Provider Internal Medicine
DX: J40 Bronchitis, not specified as acute or chronic (principal); R05.9 Cough, unspecified; Z03.818 Encounter for observation for suspected exposure to other biological agents ruled out
CPT/HCPCS: 0241U; 71045; 87651; 94640; 99284; 99285

== ENCOUNTER → 2024-02-12 04:00 | Outpatient (BNV) | payer OTHER, SELFPAY | PROVIDERS: Emergency Provider Internal Medicine; Visit Provider Radiology Diagnostic Radiology | DX: R06.02 Shortness of breath (principal) | CPT/HCPCS: 71045 ==

== ENCOUNTER 2024-03-29 06:35 | Emergency (ER) | payer MEDICAID, SELFPAY ==
[2024-03-29 06:41] VITALS: BP 158/86; PULSE 94; RESP 20; TEMP 36.4; O2SAT 97; BMI 44.8
[2024-03-29 06:54] LABS: MANUAL DIFF FLAG NO
[2024-03-29 06:58] LABS: Basophils Percent Auto 0.4 % (0-2); Eosinophils Absolute Auto 0.2 X10*3/uL (0.0-0.4); Eosinophils Percent Auto 1.9 % (0-4); Hematocrit 46.2 % (42.0-52.0); Hemoglobin 15.3 g/dl (14.0-18.0); Imm Gran Abs Auto 0.04 X10*3/uL (0.00-0.03); Imm Gran Pct Auto 0.4 % (0.0-0.4); Lymphocytes Absolute Auto 2.9 X10*3/uL (1.2-4.9); Lymphocytes Percent Auto 29.8 % (20-40); Mean Corpuscular HGB Conc 33.1 g/dl (31.0-36.0); Mean Corpuscular Hemoglobin 28.7 pg (27.0-33.0); Mean Corpuscular Volume 86.5 fL (80.0-98.0); Mean Platelet Volume 8.4 fL (9.4-12.4); Monocytes Absolute Auto 0.9 X10*3/uL (0.1-1.2); Monocytes Percent Auto 8.9 % (2-11); Neutrophils Absolute Auto 5.7 x10*3/uL (2.0-8.3); Neutrophils Percent Auto 58.6 % (45-73); Platelet Count 284 X10*3/uL (160-400); Red Blood Count 5.34 X10*6/uL (4.60-5.80); Red Cell Distribution Width 12.6 % (11.0-16.0); White Blood Count 9.7 X10*3/uL (4.8-10.8)
[2024-03-29 07:16] LABS: Alanine Aminotransferase 49 U/L (0-40); Albumin Level 4.2 g/dL (3.5-5.0); Alkaline Phosphatase 71 U/L (39-117); Anion Gap 15 (12-20); Aspartate Amino Transferase 28 U/L (5-37); Bilirubin Total 0.4 mg/dL (0.0-1.0); Blood Urea Nitrogen 11 mg/dL (9-16); Calcium 9.5 mg/dL (8.4-10.2); Carbon Dioxide 26 mmol/L (22-29); Chloride 104 mmol/L (96-108); Creatinine Clr Calc Pharmacy 134.7; Estimated Glomerular Filt Rate > 60; Glucose Random 129 mg/dL (60-115); Potassium 3.8 mmol/L (3.3-5.1); Sodium 141 mmol/L (135-145); Total Protein 7.8 g/dL (6.5-8.0)
--- NOTE | 2024-03-29 07:37 | ED.GENADULT ---
HPI - General Adult General Chief complaint: General Medical Stated complaint: sleep apnea Time Seen by Provider: 03/29/24 07:22 Source: patient Mode of arrival: ambulatory Limitations: no limitations History of Present Illness ED Provider: Jose Alexandra PA-C HPI narrative: 33 yo male with history of BRENDEN and seizures since age 11 on trileptal who presents to the ER for evaluation of concern he going to have a seizure and not be able to breathe. He states he does not wear his CPAP because it feels like he is suffocating. He has tried several settings and has a sleep doctor in [place]. He reports he is under a lot of stress currently about bills and money and stress is what usually brings on his seizures. He has not had a seizure in several years and has been compliant with his trileptal. he is worried he is going to have a seizure at night without his CPAP on and his airway will close. He denies any SOB, chest pain, abdominal pain, N/V/D or fevers. MD complaint: anxiety about a possible seizure Relieving factors: none Exacerbating factors: none Associated symptoms: denies other symptoms Treatments prior to arrival: none Related Data Home Medications ?Medication ?Instructions ?Recorded ?Confirmed clobetasol 0.05 % scalp solution 1 appl topical .every other days 05/27/23 11/03/23 oxcarbazepine 300 mg/5 mL (60 1,200 mg PO BID 05/27/23 11/03/23 mg/mL) oral suspension (Trileptal) Previous Rx's ?Medication ?Instructions ?Recorded albuterol sulfate 90 mcg/actuation 2 puff inhalation Q4-6H PRN 09/13/23 aerosol inhaler shortness of breath or wheezing #8.5 grams albuterol sulfate 90 mcg/actuation 2 puff inhalation Q6H PRN 02/12/24 aerosol inhaler shortness of breath or wheezing #8.5 grams azithromycin 500 mg tablet 500 mg PO DAILY 3 days #3 tabs 02/12/24 (Zithromax) Allergies Allergy/AdvReac Type Severity Reaction Status Date / Time latex Allergy Intermediate skin Verified 03/29/24 06:44 irritation nut - unspecified Allergy Intermediate Cough Verified 03/29/24 06:44 peanut Allergy Intermediate Nausea and Verified 03/29/24 06:44 Vomiting silver Allergy Intermediate skin Verified 03/29/24 06:44 irritations sulfamethoxazole Allergy Unknown Unknown Verified 03/29/24 06:44 [From Bactrim] trimethoprim [From Bactrim] Allergy Unknown Unknown Verified 03/29/24 06:44 Review of Systems Review of Systems: Yes all other systems are reviewed and are negative FORMERLY [facility], [facility] Past Medical History Medical History Insomnia Endogenous depression High risk sexual behavior Seborrheic dermatitis Obstructive sleep apnea Pituitary abnormality Seizure Surgical History History of surgery Social History Social History Housing: Condominium Alcohol intake: current Alcohol intake frequency: does not drink Patient Tobacco Use Status: Never used Tobacco e-Cigarette/Vaping Use: Never Used Second Hand Smoke Exposure: No Advance Directives: No Advance Directives Information Provided: Yes Do you have a plan to hurt others: No Plan service: No Current occupational status: employed Cognitive needs: No Hearing needs: No Vision needs: Yes (Glasses) Physical Exam ED Vital Signs: Vital Signs - 24 hr 03/29/24 06:41 Temperature 97.6 F Pulse Rate 94 Respiratory Rate 20 Blood Pressure 158/86 H Pulse Oximetry 97 Oxygen Delivery Method Room Air BMI result Body Mass Index 44.8 Appearance: Alert. Oriented X3. No acute distress. Head: normocephalic, atraumatic. Eyes: Pupils equal, round and reactive to light. ENT: normal external inspection Neck: Normal inspection. Neck supple. CVS: Normal heart rate and rhythm. Pulses normal. Respiratory: No respiratory distress. Breath sounds normal. Abdomen: Obese, Soft and nontender. +BS x4 Skin: Skin warm and dry. Normal skin color. Normal skin turgor. No rashes. Extremities: No lower extremity edema. No joint swelling. Neuro/psych: Oriented X 3. No motor deficit. subjective right sided numbness which he reports his chronic. CN II-XII intact. Normal speech and cognition. Medical Decision Making Medical Decision Making MDM Narrative: 33 yo male with history of BRENDEN and seizures presenting for concern he is going to have a seizure at home with increased stress at home. he is worried about seizing at night and losing his airway. he lives at home with a roommate. no seizure in several years. VSS and labs unremarkable. we discussed importance with compliance of cpap and meds. he should follow up with his PCP, neuro and sleep providers. from an ER standpoint there is no acute intervention today. he is not in crisis, no SI or HI. He is stable for d/c home. Differential Diagnosis Differential Diagnoses: The differential diagnosis associated with the presentation includes psychogenic seizures, anxiety, stress reaction, adjustment disorder Lab Data MDM Lab Attestation statement: I reviewed the patient's lab results. normal PCP, no metabolic derangement 03/29/24 06:50 03/29/24 06:50 Labs: Lab Results 03/29/24 Range/Units 06:50 WBC 9.7 (4.8-10.8) X10*3/uL RBC 5.34 (4.60-5.80) X10*6/uL Hgb 15.3 (14.0-18.0) g/dl Hct 46.2 (42.0-52.0) % MCV 86.5 (80.0-98.0) fL MCH 28.7 (27.0-33.0) pg MCHC 33.1 (31.0-36.0) g/dl RDW 12.6 (11.0-16.0) % Plt Count 284 (160-400) X10*3/uL MPV 8.4 L (9.4-12.4) fL Immature Gran % (Auto) 0.4 (0.0-0.4) % Neut % (Auto) 58.6 (45-73) % Lymph % (Auto) 29.8 (20-40) % [place] % (Auto) 8.9 (2-11) % Eos % (Auto) 1.9 (0-4) % Baso % (Auto) 0.4 (0-2) % Lymph # (Auto) 2.9 (1.2-4.9) X10*3/uL [place] # (Auto) 0.9 (0.1-1.2) X10*3/uL Eos # (Auto) 0.2 (0.0-0.4) X10*3/uL Baso # (Auto) 0.0 (0.0-0.2) X10*3/uL Abs Immat Gran (auto) 0.04 H (0.00-0.03) X10*3/uL Absolute Neuts (auto) 5.7 (2.0-8.3) x10*3/uL Absolute Nucleated RBC 0.000 (0.0-0.012) X10*3/uL Nucleated RBC % (auto) 0.0 (0.0-0.2) /100WBC Sodium 141 (135-145) mmol/L Potassium 3.8 (3.3-5.1) mmol/L Chloride 104 (96-108) mmol/L Carbon Dioxide 26 (22-29) mmol/L Anion Gap 15 (12-20) BUN 11 (9-16) mg/dL Creatinine 1.01 (0.5-1.4) mg/dL Estim Creat Clear Calc 134.7 Estimated GFR > 60 Random Glucose 129 H (60-115) mg/dL Calcium 9.5 (8.4-10.2) mg/dL Total Bilirubin 0.4 (0.0-1.0) mg/dL AST 28 (5-37) U/L ALT 49 H (0-40) U/L Alkaline Phosphatase 71 (39-117) U/L Total Protein 7.8 (6.5-8.0) g/dL Albumin 4.2 (3.5-5.0) g/dL External Record Review External record reviewed: Office record Prescription Management I considered prescription management with: Other (anxiolytic) Chronic Conditions Patient?s care impacted by: Other (BRENDEN, seizures) Social Determinants Patient?s care significantly limited by Social Determinants of Health including: Problems related to primary support group Critical Care Time Critical Care Time Critical Care Time: No Discharge Plan Discharge Clinical Impression: Sleep apnea Qualifiers: Sleep apnea type: unspecified type Qualified Code(s): G47.30 - Sleep apnea, unspecified Patient Disposition: Home, Self-Care Instructions: Sleep Apnea (DC) Additional Instructions: lab workup today was unremarkable recommend following up with your neurologist and sleep doctor continue all of your medications make sure you are getting plenty of sleep use your CPAP machine at night follow up with your PCP this week If you develop new or worsening symptoms call 911 or come back to the ER for further evaluation. Prescriptions: No Action albuterol sulfate 90 mcg/actuation HFA aerosol inhaler 2 puff inhalation Q6H PRN (Reason: shortness of breath or wheezing) Qty: 8.5 0RF azithromycin [Zithromax] 500 mg tablet 500 mg PO DAILY 3 Days Qty: 3 0RF albuterol sulfate 90 mcg/actuation HFA aerosol inhaler 2 puff inhalation Q4-6H PRN (Reason: shortness of breath or wheezing) Qty: 8.5 0RF oxcarbazepine [Trileptal] 300 mg/5 mL (60 mg/mL) suspension 1,200 mg PO BID clobetasol 0.05 % solution 1 appl topical .every other days Referrals: Alex Bond MD [Primary Care Provider] - Print Language: Romansh
[2024-03-29 08:06] VITALS: BP 158/86; PULSE 94; RESP 20; TEMP 36.4; O2SAT 97
== END 2024-03-29 08:11 | disposition home or self-care (01) ==
PROVIDERS: Emergency Provider Emergency Medicine Emergency Medical Services; PCP Internal Medicine
DX: G47.30 Sleep apnea, unspecified (principal); F41.9 Anxiety disorder, unspecified; Z99.89 Dependence on other enabling machines and devices; Z91.198 Patient's noncompliance with other medical treatment and regimen for other reason
CPT/HCPCS: 36415; 80053; 85025; 99282; 99283

== ENCOUNTER 2024-08-11 09:19 | Outpatient (AMB) | payer OTHER, SELFPAY ==
--- NOTE | 2024-08-11 09:28 | MHC.PC.OV ---
Vital Signs 08/11/24 09:31 Height 5 ft 7 in Weight 289 lb 8 oz BMI 45.3 BP 118/84 Blood Pressure Location Lt brachial Position Sitting Pulse 94 Pulse Source Pulse Oximeter Temp 97.3 F Temp Source Temporal Artery Scan Pulse Oximetry (%) 98 Oxygen Delivery Method Room Air Intake Visit Reasons: Dr Cantor patient, needs referral to cardio Human Resources Coordinator Required: No Accompanied by: Self / Same As Patient Allergies latex Allergy (Intermediate, Verified 08/11/24 09:52) skin irritation nut - unspecified Allergy (Intermediate, Verified 08/11/24 09:52) Cough peanut Allergy (Intermediate, Verified 08/11/24 09:52) Nausea and Vomiting silver Allergy (Intermediate, Verified 08/11/24 09:52) skin irritations sulfamethoxazole (From Bactrim) Allergy (Unknown, Verified 08/11/24 09:52) Unknown trimethoprim (From Bactrim) Allergy (Unknown, Verified 08/11/24 09:52) Unknown Medication List - Last Reconciled 08/12/24 by OSCAR Orozco albuterol sulfate 90 mcg/actuation 2 puffs inhalation Q6H PRN albuterol sulfate 90 mcg/actuation 2 puffs inhalation Q4-6H PRN azithromycin (Zithromax) 500 mg PO DAILY 3 days clobetasol 0.05% 1 appl topical .every other days oxcarbazepine (Trileptal) 1,200 mg PO BID Tobacco use date assessed: 08/11/24 Dental Screening Dental Screen Date: 08/11/24 Did you have a dental visit in the last 12 months?: No Did you have a dental problem in the last 6 months where you did not have access to dental care?: No Was dental information given to patient?: No HPI Dr Cantor patient, needs referral to cardio HPI Details The patient is a 34-year-old male presenting with heart palpitations and a request for a cardiology referral due to a family history of heart disease. The patient reports experiencing heart palpitations for the past year and a half, which have become more dramatic and frequent. He describes episodes where his heart beats very fast, sometimes waking him from sleep, and lasting up to 40 minutes. He also experienced an episode while driving where his heart felt like it was about to drop out of his chest. The patient has a history of epilepsy and has been living with this condition for many years. He mentioned a recent episode where he thought he was going to have a seizure, prompting a call for an ambulance. He reports experiencing chest pressure a couple of times a week, which he describes as a pressure in the middle of his chest. He denies experiencing heartburn or a burning sensation in the chest after eating. The patient also reports significant fatigue, which he attributes to his CPAP use. He experiences dyspnea on exertion, such as when climbing stairs with a laundry basket, which he finds abnormal for his usual activities. The patient has a significant family history of heart disease, with his father having survived multiple heart attacks and his uncle having undergone heart surgery. The patient reports that he went to [facility] ED recently due to his palpitation and chest pain States that he was given a cardiology referral, but no other interventions According to patient, he tried to book an appointment with cardiology and they told him he needed a referral from his PCP. [facility] Medical History Insomnia Endogenous depression High risk sexual behavior Seborrheic dermatitis Obstructive sleep apnea Pituitary abnormality Seizure Surgical History History of surgery Social History Housing: Condominium Alcohol intake: current Alcohol intake frequency: does not drink Patient Tobacco Use Status: Never used Tobacco e-Cigarette/Vaping Use: Never Used Second Hand Smoke Exposure: No service: No Current occupational status: employed Cognitive needs: No Hearing needs: No Vision needs: Yes (Glasses) Questionnaire PHQ-9 Over the last 2 weeks, how often have you been bothered by any of the following problems? 1. Little interest or pleasure in doing things: not at all 2. Feeling down, depressed, or hopeless: not at all 3. Trouble falling or staying asleep, or sleeping too much: several days 4. Feeling tired or having little energy: several days 5. Poor appetite or overeating: not at all 6. Feeling bad about yourself - or that you are a failure or have let yourself or your family down: not at all 7. Trouble concentrating on things, such as reading the newspaper or watching television: not at all 8. Moving or speaking so slowly that other people could have noticed. Or the opposite - being so fidgety or restless that you have been moving around a lot more than usual: not at all 9. Thoughts that you would be better off or of hurting yourself in some way: not at all Total score: 2 Depression Screening Interpretation: Negative Depression Screening Done: Yes 85584 - PHQ-9 Billing: Yes Source: Developed by Drs. Dwayne Stafford, Elke Brown, Ryan Baker and colleagues, with an educational enmanuel from [employer]. Thrive Questionnaire Date Thrive assessed: 08/11/24 I am a: Patient What is your living situation today?: I choose not to answer this question Within the past 12 months, did the food you bought not last and you didn't have the money to get more?: I choose not to answer this question Within the past 12 months, did you worry whether your food would run out before you got money to buy more?: I choose not to answer this question Do you have trouble paying for medicines?: No Do you have trouble getting transportation to medical appointments?: No Do you have trouble paying your heating and electricity bill?: I choose not to answer this question Do you have trouble taking care of your child, family member or friend?: I choose not to answer this question Do you have trouble with day-to-day activities such as bathing, preparing meals, shopping, managing finances, etc.?: I choose not to answer this question Are you currently unemployed and looking for a job?: I choose not to answer this question Are you interested in more education?: I choose not to answer this question Please select the resources that you would like help with: None Currently or been in a relationship where the following occur: I choose not to answer THRIVE Score: 0 AUDIT C Alcohol Use Questionnaire (AUDIT-C) 1. How often do you have a drink containing alcohol?: Never Total Score: 0 NISA-7 AMB Questionnaire NISA-7 Date NISA - 7 assessed: 08/11/24 Feeling nervous, anxious, or on edge: 0 = Not at all Not being able to stop or control worryin = Not at all Worrying too much about different things: 0 = Not at all Trouble relaxin = Not at all Being so restless that it is hard to sit still: 0 = Not at all Becoming easily annoyed or irritable: 0 = Not at all Feeling afraid as if something awful might happen: 0 = Not at all Total NISA-7 score (0-4 normal; 5-9 mild; 10-14 moderate; 15-21 severe): 0 Source: Developed by Drs. Dwayne Stafford, Elke Brown, Ryan Baker and colleagues, with an educational enmanuel from [employer]. NISA-7 Assessment Billing NISA-7 Assessment Tool: NSIA-7 Assessment 44958 Review of Systems Const Reports daytime sleepiness, Reports fatigue, Denies headache(s), Reports lethargy, Reports snoring and Reports weight gain Eyes Denies loss of vision ENT Denies vertigo, Denies dizziness, Denies headache(s) and Denies sore throat Card Reports chest pain (Occasional, midsternal), Reports rapid heart rate (Reports intermittent heart palpitation), Denies leg edema, Denies lightheadedness, Denies radiating jaw, neck or arm pain and Reports dyspnea on exertion Resp Denies cough, Denies hemoptysis, Reports dyspnea on exertion, Reports snoring and Denies wheezing GI Denies abdominal pain, Denies melena, Denies constipation, Denies heartburn, Denies diarrhea and Denies vomiting Denies dysuria, Denies urinary frequency and Denies urinary urgency Musc Denies arthralgias, Denies joint swelling, Denies numbness and Denies tingling Neuro Denies Abnormal speech present, Denies behavioral changes, Denies vertigo, Denies dizziness, Denies headache(s), Denies loss of vision, Denies memory loss, Denies numbness and Denies tingling Psych Reports anxiety, Denies behavioral changes, Reports depression, Denies memory loss and Denies panic attacks Endo Reports fatigue Timoteo/Lymph Denies easy bleeding and Denies easy bruising Aller/Immun Denies wheezing Physical exam (Primary Care) Vital Signs: Last Vital Signs Temp 97.3 F 08/11/24 09:31 Pulse 94 08/11/24 09:31 BP 118/84 08/11/24 09:31 Pulse Ox 98 08/11/24 09:31 Oxygen Delivery Method Room Air 08/11/24 09:31 BMI result Body Mass Index 45.3 Tobacco/Smoking Status: Tobacco use Status Tobacco use date assessed 08/11/24 08/11/24 09:32 Patient Tobacco Use Status Never used Tobacco 08/11/24 09:32 e-Cigarette/Vaping Use Never Used 08/11/24 09:32 PHQ-9: PHQ-9 Score PHQ-9: Total score 2 08/11/24 10:19 Depression Screening Interpretation: Negative Thrive Assessment: Date of Thrive Assessment Date Thrive assessed 08/11/24 08/11/24 09:32 Currently or been in a relationship where the following occur: I choose not to answer Const General: healthy appearing, no acute distress, alert and awake Nutritional Appearance: well nourished Orientation/consciousness: oriented to person, oriented to place and oriented to time HENMT Ears: TM's normal bilaterally General nose exam: Normal nasal mucous membranes and turbinates present Eyes Conjunctivae: conjunctivae normal Sclerae: sclerae normal Pupils: Equal, round and reactive pupils present Neck Neck: Yes no lymphadenopathy and Yes no JVD Thyroid: Thyroid normal Carotids: no bruits Resp Effort & Inspection: normal respiratory effort and not tachypneic Auscultation: no crackles, no rales, no rhonchi and no wheezes Cardio Rate: regular rate Rhythm: regular rhythm Heart sounds: no murmurs and normal S1 and S2 GI Inspection: Yes distended and Yes obesity Palpation (GI): Soft to palpation, nontender, no hepatomegaly and no splenomegaly Auscultation: normal bowel sounds Skin General skin exam: no rashes or lesions noted and dry skin Neuro General: oriented to person, oriented to place and oriented to time Cranial nerves: Yes Equal, round and reactive pupils present Speech: No Abnormal speech present Gait exam (Neuro): Normal gait present Motor exam (neuro): no tremor noted Extrem Right upper extremity: full ROM Left upper extremity: full ROM Right lower extremity: full ROM; no edema Left lower extremity: full ROM; no edema Psych Mental Status: mental status grossly normal Speech and movement: Normal speech and movement present Affect: normal affect Attitude: cooperative Thought process: Normal thought process present Results AMB Hemoglobin A1c AMB Hemoglobin A1c 5.6 % Last Edit by Alivia Garnica MA on 08/11/24 09:54 Results Reviewed Results Reviewed: Laboratory Last Values Hgb A1c (Clinic) 5.6 % (4.0-6.0) 08/11/24 09:36 Coding Level of Care Code Est Pt Level 3 (76123) Diagnoses Family history of heart attack Z82.49 Morbid obesity E66.01 Obstructive sleep apnea G47.33 Additional Codes NISA-7 Assessment Billing - NISA-7 Assessment Tool: NISA-7 Assessment 89119 ([id number]) PHQ-9 - 85323 - PHQ-9 Billing: Yes ([id number]) Time Spent (min) 32 Assessment & Plan Assessment & Plan (1) Family history of heart attack: Code(s): Z82.49 - Family history of ischemic heart disease and other diseases of the circulatory system Category: Medical Plan: Patient is presenting with reports of extensive family history days of heart attack. Reports that this father had several heart attacks and his uncle had to undergo cardiac surgery. Reports that he is concern, due to recurrent heart palpitation and midsternal chest pain. These episodes landed the patient in [facility] ER, where he was evaluated and no treatment was given per patient. Apparently, he was referred to Cardiology but then was told that he needs the referral directly from his PCP. Patient is stable in office. Describes episodes off zoning out and has to breathe to restart his heart. Discussed with the patient that his descriptions sounds like he is having increased anxiety along with panic attacks. However, we will refer the patient to Cardiology to rule out any heart abnormalities. (2) Morbid obesity: Code(s): E66.01 - Morbid (severe) obesity due to excess calories Category: Medical Plan: Encouraged to exercise for at least 30 minutes a day/5 days a week Healthy eating discussed. Encouraged to eat fruits/vegetables, protein-fish/baked chicken, and to avoid salty/fried foods, sweets, caffeine and carbohydrates. Encouraged to increase water intake 6-8 glasses a day (3) Obstructive sleep apnea: Comment: severe AHI 38 REM AHI 57 O2 ryder 52 % Code(s): G47.33 - Obstructive sleep apnea (adult) (pediatric) Category: Medical Plan: The patient is also complaining off daytime tiredness and just feeling overly fatigued. Appears that the patient has been noncompliant with his CPAP. Explained to the patient that these symptoms we will most likely improve if he started wearing his CPAP. Labs ordered to further evaluate. Orders: Orders AMB Hemoglobin A1c 08/11/24 Z13.1 - Encounter for screening for diabetes mellitus Comprehensive [place]. Panel Fast 08/11/24 E66.01 - Morbid (severe) obesity due to excess calories, G47.00 - Insomnia, unspecified, G47.33 - Obstructive sleep apnea (adult) (pediatric), R56.9 - Unspecified convulsions Lipid Panel 08/11/24 E66.01 - Morbid (severe) obesity due to excess calories, G47.00 - Insomnia, unspecified, G47.33 - Obstructive sleep apnea (adult) (pediatric), R56.9 - Unspecified convulsions TSH reflex Free T4 08/11/24 E66.01 - Morbid (severe) obesity due to excess calories, G47.00 - Insomnia, unspecified, G47.33 - Obstructive sleep apnea (adult) (pediatric), R56.9 - Unspecified convulsions Complete Blood Count Auto Diff 08/11/24 E66.01 - Morbid (severe) obesity due to excess calories, G47.00 - Insomnia, unspecified, G47.33 - Obstructive sleep apnea (adult) (pediatric), R56.9 - Unspecified convulsions UA CC w/rflx Micro + Cult 08/11/24 E66.01 - Morbid (severe) obesity due to excess calories, G47.00 - Insomnia, unspecified, G47.33 - Obstructive sleep apnea (adult) (pediatric), R56.9 - Unspecified convulsions Vitamin D 25-OH Total 08/11/24 E66.01 - Morbid (severe) obesity due to excess calories, G47.00 - Insomnia, unspecified, G47.33 - Obstructive sleep apnea (adult) (pediatric), R56.9 - Unspecified convulsions Erythrocyte Sedimentation Rate 08/11/24 E66.01 - Morbid (severe) obesity due to excess calories, G47.00 - Insomnia, unspecified, G47.33 - Obstructive sleep apnea (adult) (pediatric), R56.9 - Unspecified convulsions CRP High Sensitivity 08/11/24 E66.01 - Morbid (severe) obesity due to excess calories, G47.00 - Insomnia, unspecified, G47.33 - Obstructive sleep apnea (adult) (pediatric), R56.9 - Unspecified convulsions Referrals Cardiology Referral R00.2 - Palpitations, R07.9 - Chest pain, unspecified, Z82.49 - Family history of ischemic heart disease and other diseases of the circulatory system
[2024-08-11 09:31] VITALS: BP 118/84; PULSE 94; TEMP 36.3; O2SAT 98; BMI 45.3
--- OUTSIDE RECORDS SUMMARY | 2024-08-11 09:35 | XMS_ITS | Clinical Summary ---
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 [address] [place] [phone] Paroxysmal atrial fibrillation (CMS/HCC V24, CMS/HCC V28) (Primary Dx) Discharge Disposition: Home or Self Care 06/07/2024 7:56 PM EDT - 06/07/2024 11:[address] [facility] [address] [place] [phone] History of seizure (Primary Dx) Discharge Disposition: Home or Self Care 05/31/2024 8:57 PM EDT - 06/01/2024 12:[address] [facility] [address] [place] [phone] Discharge Disposition: Left Against Medical Advice from Last 3 Months Social History Tobacco Use Types Packs/Day Years Used Date Smoking Tobacco: Never Assessed Sex and Gender Information Value Date Recorded Sex Assigned at Male 06/07/2024 9:13 PM EDT Legal Sex Male 9:50 AM EST Gender Identity Male 06/07/2024 9:13 PM EDT Sexual Orientation Straight 06/07/2024 9: 13 PM EDT Last Filed Vital Signs Vital Sign Reading Time Taken Comments Blood Pressure 110/79 07/02/2024 8:59 AM EDT Pulse 95 07/02/2024 8:59 AM EDT Temperature 37.1 C (98.7 F) 07/02/2024 8:59 AM EDT Respiratory Rate 17 07/02/2024 8:59 AM EDT Oxygen Saturation 94% 07/02/2024 8:59 AM EDT Inhaled Oxygen Concentration - - Weight 132 kg (290 lb) 07/02/2024 6:02 AM EDT Height 170.2 cm (5' 7 ) 07/02/2024 6:02 AM EDT Body Mass Index 45.42 07/02/2024 6:02 AM EDT Plan of Treatment Health Maintenance Due Date Last Done Comments Hepatitis B Vaccines (3 of 3 - 3-dose series) 04/26/2004 02/21/2004, 01/05/2004 DTaP,Tdap,and Td Vaccines (8 - Td or Tdap) 08/29/2019 08/28/2009, 01/05/2004, 12/25/1995, Additional history exists Cholesterol Screening (Lipid Panel) 09/01/2023 Depression Screening 09/01/2023 HIV Screening 09/01/2023 Hepatitis C Screening 09/01/2023 Social Influencers of Health Screening 09/01/2023 COVID-19 Vaccine ( season) 2023 Influenza Vaccine (Season Ended) 2024 03/03/2013 HIB Vaccines Completed 05/24/1992, 05/10, 1990, Additional history exists IPV Vaccines Completed 12/25/1995, 05/10, 12/25/1991, Additional history exists MMR Vaccines Completed 12/25/1995, 09/24/1991 Meningococcal ACWY Vaccine Completed 06/09/2007 Varicella Vaccines Completed 08/28/2009, 02/23/1997 HPV Vaccines Aged Out No longer eligi ble based on patient's age to complete this topic Hepatitis A Vaccines Aged Out No long er eligible based on patient's age to complete this topic Meningococcal B Vaccine Aged Out No l onger eligible based on patient's age to complete this topic Pneumococcal Vaccine: Pediatrics (0 to 5 Years) and At-Risk Patients (6 to 64 Years) Aged Out No longer eligible based on patient's age to complete this topic RSV Immunization Patients Under 20 months Aged Out No longer eligible based on patient's age to complete this topic Procedures Procedure Name Priority Date/Time Associated Diagnosis Comments ECG ANNOTATED 07/06/2024 XR CHEST 2 VIEWS STAT 07/02/2024 7:46 AM EDT ECG 12-LEAD STAT 07/02/2024 7:16 AM EDT TROPONIN I HIGH SENSITIVITY STAT 07/02/2024 6:50 AM EDT TRIIODOTHYRONINE FREE STAT 07/02/2024 6:12 AM EDT FREE THYROXINE WITH REFLEX TO FREE TRIIODOTHYRONINE STAT 07/02/2024 6:12 AM EDT THYROID STIMULATING HORMONE WITH REFLEX TO FREE T4 AND FREE T3 STAT Add-on 07/02/2024 6:12 AM EDT CBC WITH AUTO DIFFERENTIAL STAT 07/02/2024 6:12 AM EDT THYROID STIMULATING HORMONE STAT 07/02/2024 6:12 AM EDT TROPONIN I HIGH SENSITIVITY STAT 07/02/2024 6:12 AM EDT MAGNESIUM STAT 07/02/2024 6:12 AM EDT BASIC METABOLIC PANEL STAT 07/02/2024 6:12 AM EDT CBC AND DIFFERENTIAL STAT 07/02/2024 6:12 AM EDT ECG ANNOTATED 06/08/2024 CBC WITH AUTO DIFFERENTIAL STAT 06/07/2024 8:15 PM EDT OXCARBAZEPINE LEVEL STAT 06/07/2024 8 :15 PM EDT COMPREHENSIVE METABOLIC PANEL STAT 06/07/2024 8:15 PM EDT PROLACTIN STAT 06/07/2024 8:15 PM EDT MAGNESIUM STAT 06/07/2024 8:15 PM EDT CBC AND DIFFERENTIAL STAT 06/07/2024 8:15 PM EDT ECG 12-LEAD STAT 06/07/2024 8:09 PM EDT ECG ANNOTATED 06/01/2024 TROPONIN I HIGH SENSITIVITY STAT 05/31/2024 10:11 PM EDT XR CHEST 2 VIEWS STAT 05/31/2024 9:16 PM EDT MANUAL DIFFERENTIAL - SYSMEX WAM STAT 05/31/2024 9:10 PM EDT CBC WITH AUTO DIFFERENTIAL STAT 05/31/2024 9:10 PM EDT B-TYPE NATRIURETIC PEPTIDE STAT 05/31/2024 9:10 PM EDT MAGNESIUM STAT 05/31/2024 9:10 PM EDT LIPASE STAT 05/31/2024 9:10 PM EDT COMPREHENSIVE METABOLIC PANEL STAT 05/31/2024 9:10 PM EDT CBC AND DIFFERENTIAL STAT 05/31/2024 9:10 PM EDT TROPONIN I HIGH SENSITIVITY STAT 05/31/2024 9:10 PM EDT ECG 12-LEAD STAT 05/31/2024 9:01 PM EDT from Last 3 Months Results * ECG-Annotated (07/06/2024) Only the most recent of3 resultswithin the time period is included. us Provider Onbase ECG ORDERABLES Final Result * XR Chest 2 Views (07/02/2024 7:46 AM EDT) Only the most recent of2 resultswithin the time period is included. Anatomical Region Laterality Modality Body Radiographic Doreen ging 07/02/2024 8:48 AM EDT Impressions 07/02/2024 8:48 AM EDT No evidence of active pulmonary disease. No significant change from the prior study. -------- FINAL REPORT -------- Dictated By: Paul Ernandez Dictated Date: 07/02/2024 08:48 ET Assigned Physician: Paul Ernandez Reviewed and Electronically Signed By: Paul Ernandez Signed Date: 07/02/2024 08:48 ET Workstation ID: [id number] Transcribed By: Self Edit Transcribed Date: 07/02/2024 08:48 ET Narrative 07/02/2024 8:48 AM EDT INDICATION: Palpitations FINDINGS: Two views of the chest were obtained. Compared to study from May 31, 2024. Lung machado are clear. Cardiomediastinal silhouette is normal in size and shape. Bony structures are within normal limits for the patient's age. Procedure Note Paul Ernandez MD - 07/02/2024 INDICATION: Palpitations FINDINGS: Two views of the chest were obtained. Compared to study fromMay 31, 2024. Lung machado are clear. Cardiomediastinal silhouette is normal in size and shape. Bony structures are within normal limits for the patient's age. IMPRESSION: No evidence of active pulmonary disease. No significant change from theprior study. -------- FINAL REPORT -------- Dictated By: Paul Ernandez Dictated Date: 07/02/2024 08:48 ET Assigned Physician: Awais, Parshant Reviewed and Electronically Signed By: Paul Ernandez Signed Date: 07/02/2024 08:48 ET Workstation ID: [id number] Transcribed By: Self Edit Transcribed Date: 07/02/2024 08:48 ET Nury Younger MD IMG XR PROCEDURES Final Result * ECG 12 lead (07/02/2024 7:16 AM EDT) Only the most recent of3 resultswithin the time period is included. [facility] Ventricular Rate ECG 108 BPM GEMUSE Atrial Rate 108 BPM GEMUSE P-R Interval 146 ms GEMUSE QRS Duration 78 ms GEMUSE Q-T Interval 310 ms GEMUSE QTc 415 ms GEMUSE P Wave [place] 39 degrees GEMUSE R [place] 13 degrees GEMUSE T [place] 25 degrees GEMUSE ECG Interpretation Sinus tachycardia When compared with ECG of 07-JUN-2024 20:09, No significant change was found Confirmed by LUIZA STONER ([id number]) on 07/03/2024 12:40:22 AM GEMUSE 07/02/2024 7:16 AM EDT 07/03/2024 12:40 AM EDT Nury Younger MD ECG ORDERABLES Final Re sult GEMUSE * Troponin I high sensitivity (07/02/2024 6:50 AM EDT) Only the most recent of4 resultswithin the time period is included. [facility] High Sensitivity Troponin I 10 <=79 ng/L LAB CHEMISTRY METHOD 07/02/2024 9:13 AM EDT [facility] Blood Venous blood specimen / Unknown Venipuncture / Unknown 07/02/2024 6:50 AM EDT 07/02/2024 8:39 AM EDT Narrative [facility] - 07/02/2024 9:13 AM EDT High levels of biotin in samples may falsely decrease hsTroponin values. Use caution when interpreting hsTroponin results in patients taking biotin who exhibit renal impairment (eGFR <60) or in patients taking more than 20 mg/day of biotin. Nury Younger MD LAB BLOOD ORDERABLES Fin al Result Performing Organization Address [facility]/ZIP Co de Phone Number [facility] [address] [place] [address], [place] [phone] * Thyroid stimulating hormone with reflex to free t4 and free t3 (TSH Reflex) (07/02/2024 6:12 AM EDT) TSH 2.41 0.40 - 4.00 mcIU/mL LAB CHEMISTRY METHOD 07/02/2024 9:06 AM EDT [facility] Blood Venous blood specimen / Unknown Venipuncture / Unknown 07/02/2024 6:12 AM EDT 07/02/2024 6:17 AM EDT Rosa ZIMMERMAN LAB BLOOD ORDERABLES Fin al Result Performing Organization Address [facility] Co de Phone Number [facility] [address] [place] [address], [place] [phone] * Free thyroxine with reflex to free triiodothyronine (07/02/2024 6:12 AM EDT) Free T4 0.94 0.70 - 1.80 ng/dL LAB CHEMISTRY METHOD 07/02/2024 10:35 AM EDT [facility] Blood Venous blood specimen / Unknown Venipuncture / Unknown 07/02/2024 6:12 AM EDT 07/02/2024 6:17 AM EDT Rosa ZIMMERMAN LAB BLOOD ORDERABLES Fin al Result Performing Organization Address [facility] Co de Phone Number [facility] [address] [place] [address], [place] [phone] * (ABNORMAL) CBC auto differential (07/02/2024 6:12 AM EDT) Only the most recent of3 resultswithin the time period is included. [facility] Signature WBC 10.1 4.8 - 10.8 K/mcL LAB HEMETOLOGY METHOD 07/02/2024 6:23 AM [facility] RBC 5.60(H) 4.50 - 5.50 M/mcL LAB HEMETOLOGY METHOD 07/02/2024 6:23 AM [facility] Hemoglobin 15.7 13.5 - 17.5 g/dL LAB HEMETOLOGY METHOD 07/02/2024 6:23 AM [facility] Hematocrit 48.2 42.0 - 54.0 % LAB HEMETOLOGY METHOD 07/02/2024 6:23 AM [facility] MCV 86.8 79.0 - 98.0 FL LAB HEMETOLOGY METHOD 07/02/2024 6:23 AM [facility] MCH 28.3 27.0 - 32.0 pcg LAB HEMETOLOGY METHOD 07/02/2024 6:23 AM [facility] MCHC 32.6 32.0 - 37.0 g/dL LAB HEMETOLOGY METHOD 07/02/2024 6:23 AM [facility] RDW 12.5 11.0 - 15.0 % LAB HEMETOLOGY METHOD 07/02/2024 6:23 AM [facility] Platelets 246 130 - 400 K/mcL LAB HEMETOLOGY METHOD 07/02/2024 6:23 AM [facility] MPV 8.6 7.0 - 11.0 FL LAB HEMETOLOGY METHOD 07/02/2024 6:23 AM [facility] NRBC 0.0 <1.0 % LAB HEMETOLOGY METHOD 07/02/2024 6:23 AM [facility] NRBC Absolute 0.00 <0.10 K/mcL LAB HEMETOLOGY METHOD 07/02/2024 6:23 AM [facility] Neutrophils Relative 49.9 % LAB HEMETOLOGY METHOD 07/02/2024 6:23 AM [facility] Lymphocytes Relative 32.1 % LAB HEMETOLOGY METHOD 07/02/2024 6:23 AM [facility] Monocytes Relative 11.6 % LAB HEMETOLOGY METHOD 07/02/2024 6:23 AM [facility] Eosinophils Relative 5.3 % LAB HEMETOLOGY METHOD 07/02/2024 6:23 AM [facility] Basophils Relative 0.9 % LAB HEMETOLOGY METHOD 07/02/2024 6:23 AM [facility] Immature Granulocytes Relative 0.2 % LAB HEMETOLOGY METHOD 07/02/2024 6:23 AM [facility] Neutrophils Absolute 5.03 1.50 - 7.00 K/mcL LAB HEMETOLOGY METHOD 07/02/2024 6:23 AM [facility] Lymphocytes Absolute 3.24 1.00 - 5.00 K/mcL LAB HEMETOLOGY METHOD 07/02/2024 6:23 AM [facility] Monocytes Absolute 1.17(H) 0.20 - 1.00 K/mcL LAB HEMETOLOGY METHOD 07/02/2024 6:23 AM [facility] Eosinophils Absolute 0.53(H) 0.00 - 0.50 K/mcL LAB HEMETOLOGY METHOD 07/02/2024 6:23 AM [facility] Basophils Absolute 0.09 0.00 - 0.20 K/mcL LAB HEMETOLOGY METHOD 07/02/2024 6:23 AM [facility] Immature Granulocytes Absolute 0.02 0.00 - 0.03 K/mcL LAB HEMETOLOGY METHOD 07/02/2024 6:23 AM EDT [facility] Blood Venous blood specimen / Unknown Venipuncture / Unknown 07/02/2024 6:12 AM EDT 07/02/2024 6:17 AM EDT Nury Younger MD LAB BLOOD ORDERABLES Fin al Result Performing Organization Address [facility] Co de Phone Number [facility] [address] [place] [address], [place] [phone] * Triiodothyronine free (07/02/2024 6:12 AM EDT) T3, Free 316 230 - 420 pcg/dL LAB CHEMISTRY METHOD 07/02/2024 11:01 AM EDT [facility] Blood Venous blood specimen / Unknown Venipuncture / Unknown 07/02/2024 6:12 AM EDT 07/02/2024 6:17 AM EDT Rosa ZIMMERMAN LAB BLOOD ORDERABLES Fin al Result Performing Organization Address [facility] de Phone Number [facility] [address] [place] [address], [place] [phone] * Thyroid stimulating hormone (TSH) (07/02/2024 6:12 AM EDT) TSH 2.41 0.40 - 4.00 mcIU/mL LAB CHEMISTRY METHOD 07/02/2024 9:06 AM EDT [facility] Blood Venous blood specimen / Unknown Venipuncture / Unknown 07/02/2024 6:12 AM EDT 07/02/2024 6:17 AM EDT Nury Younger MD LAB BLOOD ORDERABLES Fin al Result Performing Organization Address [facility] Co de Phone Number [facility] [address] [place] [address], [place] [phone] * Magnesium (07/02/2024 6:12 AM EDT) Only the most recent of3 resultswithin the time period is included. [facility] Magnesium 1.9 1.9 - 2.6 mg/dL LAB CHEMISTRY METHOD 07/02/2024 6:47 AM EDT [facility] Blood Venous blood specimen / Unknown Venipuncture / Unknown 07/02/2024 6:12 AM EDT 07/02/2024 6:17 AM EDT Nury Younger MD LAB BLOOD ORDERABLES Fin al Result [facility] [address] [place] [address], [place] [phone] * (ABNORMAL) Basic metabolic panel (07/02/2024 6:12 AM EDT) [facility] Sodium 137 133 - 145 mmol/L LAB CHEMISTRY METHOD 07/02/2024 6:47 AM [facility] Potassium 3.9 3.5 - 5.5 mmol/L LAB CHEMISTRY METHOD 07/02/2024 6:47 AM [facility] Chloride 103 96 - 110 mmol/L LAB CHEMISTRY METHOD 07/02/2024 6:47 AM T [facility] CO2 25 21 - 32 mmol/L LAB CHEMISTRY METHOD 07/02/2024 6:47 AM [facility] Anion Gap 9 3 - 11 LAB CHEMISTRY METHOD 07/02/2024 6:47 AM [facility] Glucose 117(H) 70 - 100 mg/dL LAB CHEMISTRY METHOD 07/02/2024 6:47 AM [facility] BUN 14 5 - 25 mg/dL LAB CHEMISTRY METHOD 07/02/2024 6:47 AM [facility] Creatinine 1.21 0.70 - 1.30 mg/dL LAB CHEMISTRY METHOD 07/02/2024 6:47 AM EDT [facility] eGFR 81 >=60 mL/min/1. 73m2 LAB CHEMISTRY METHOD 07/02/2024 6:47 AM EDT [facility] Comment:Calculation based on the Chronic Kidney Disease Epidemiology Collaboration (CKD-EPI) equation refit without adjustment for race. BUN/Creatinine Ratio 11.6 LAB CHEMISTRY METHOD 07/02/2024 6:47 AM EDT [facility] Calcium 9.6 8.5 - 10.5 mg/dL LAB CHEMISTRY METHOD 07/02/2024 6:47 AM EDT [facility] Blood Venous blood specimen / Unknown Venipuncture / Unknown 07/02/2024 6:12 AM EDT 07/02/2024 6:17 AM EDT Nury Younger MD LAB BLOOD ORDERABLES Fin al Result Performing Organization Address [facility]/ZIP Co de Phone Number [facility] [address] [place] [address], * Prolactin (06/07/2024 8:15 PM EDT) [facility] Signature Prolactin 8.60 2.50 - 17.40 ng/mL LAB CHEMISTRY METHOD 06/07/2024 9:02 PM EDT [facility] Blood Venous blood specimen / Unknown Venipuncture / Unknown 06/07/2024 8:15 PM EDT 06/07/2024 8:22 PM EDT Moy Ferris MD LAB BLOOD ORDERABLES Kelsey l Result Performing Organization Address [facility]/ZIP Co de Phone Number [facility] [address] [place] [address], [place] [phone] * (ABNORMAL) Oxcarbazepine level (06/07/2024 8:15 PM EDT) Oxcarbazepine 4.5(L) 10 - 35 ug/mL 06/10/2024 11:48 AM EDT [facility] Comment: If applicable, any drug confirmation testing reported here was developed and the performance characteristics determined by [facility]. This confirmation testing has not been cleared or approved by the FDA. The laboratory is regulated under CLIA as qualified to perform high-complexity testing. This test is used for patient testing purposes. It should not be regarded as investigational or for research. Test performed at [facility], [address] , [place] [address] Kylie Lopez MD, PhD - Disability Insurance Hearing Officer Blood Venous blood specimen / Unknown Venipuncture / Unknown 06/07/2024 8:15 PM EDT 06/07/2024 8:23 PM EDT Moy Ferris MD LAB BLOOD ORDERABLES Kelsey king Result [facility] [address] [place] [address] * (ABNORMAL) Comprehensive metabolic panel (06/07/2024 8:15 PM EDT) Only the most recent of2 resultswithin the time period is included. Pathologist [facility] Sodium 134 133 - 145 mmol/L LAB CHEMISTRY METHOD 06/07/2024 8:58 PM EDT [facility] Potassium 3.9 3.5 - 5.5 mmol/L LAB CHEMISTRY METHOD 06/07/2024 8:58 PM EDT [facility] Chloride 100 96 - 110 mmol/L LAB CHEMISTRY METHOD 06/07/2024 8:58 PM EDT [facility] CO2 29 21 - 32 mmol/L LAB CHEMISTRY METHOD 06/07/2024 8:58 PM EDT [facility] Anion Gap 5 3 - 11 LAB CHEMISTRY METHOD 06/07/2024 8:58 PM EDT [facility] Glucose 157(H) 70 - 100 mg/dL LAB CHEMISTRY METHOD 06/07/2024 8:58 PM [facility] BUN 14 5 - 25 mg/dL LAB CHEMISTRY METHOD 06/07/2024 8:58 PM [facility] Creatinine 1.23 0.70 - 1.30 mg/dL LAB CHEMISTRY METHOD 06/07/2024 8:58 PM [facility] eGFR 79 >=60 mL/min/1. 73m2 LAB CHEMISTRY METHOD 06/07/2024 8:58 PM [facility] Comment:Calculation based on the Chronic Kidney Disease Epidemiology Collaboration (CKD-EPI) equation refit without adjustment for race. BUN/Creatinine Ratio 11.4 LAB CHEMISTRY METHOD 06/07/2024 8:58 PM [facility] Calcium 9.1 8.5 - 10.5 mg/dL LAB CHEMISTRY METHOD 06/07/2024 8:58 PM [facility] AST (SGOT) 18 10 - 42 unit/L LAB CHEMISTRY METHOD 06/07/2024 8:58 PM [facility] ALT (SGPT) 44 10 - 60 unit/L LAB CHEMISTRY METHOD 06/07/2024 8:58 PM [facility] Alkaline Phosphatase 78 42 - 121 unit/L LAB CHEMISTRY METHOD 06/07/2024 8:58 PM [facility] Total Protein 7.4 6.0 - 8.0 g/dL LAB CHEMISTRY METHOD 06/07/2024 8:58 PM [facility] Albumin 3.7 3.2 - 5.0 g/dL LAB CHEMISTRY METHOD 06/07/2024 8:58 PM [facility] Total Bilirubin 0.3 0.0 - 1.4 mg/dL LAB CHEMISTRY METHOD 06/07/2024 8:58 PM [facility] Blood Venous blood specimen / Unknown Venipuncture / Unknown 06/07/2024 8:15 PM EDT 06/07/2024 8:22 PM EDT us Moy Ferris MD LAB BLOOD ORDERABLES Kelsey fernando Result [facility] [address] [place] [address], [place] [phone] * (ABNORMAL) Manual differential (05/31/2024 9:10 PM EDT) Neutrophils % 40.0 % LAB HEMETOLOGY METHOD 05/31/2024 10:25 PM EDT [facility] Bands % 2.0 % LAB HEMETOLOGY METHOD 05/31/2024 10:25 PM EDT [facility] Lymphocytes % 47.0 % LAB HEMETOLOGY METHOD 05/31/2024 10:25 PM EDT [facility] Reactive Lymphocyte 6.00 % LAB HEMETOLOGY METHOD 05/31/2024 10:25 PM EDT [facility] Monocytes % 4.0 % LAB HEMETOLOGY METHOD 05/31/2024 10:25 PM EDT [facility] Eosinophils % 1.0 % LAB HEMETOLOGY METHOD 05/31/2024 10:25 PM EDT [facility] Basophils % 0.0 % LAB HEMETOLOGY METHOD 05/31/2024 10:25 PM EDT [facility] Neutrophils Absolute Manual 3.12 1.50 - 7.00 K/mcL LAB HEMETOLOGY METHOD 05/31/2024 10:25 PM EDT [facility] Bands Absolute Manual 0.16(H) 0.00 - 0.00 K/mcL LAB HEMETOLOGY METHOD 05/31/2024 10:25 PM EDT [facility] Lymphocytes Absolute 3.67 1.00 - 5.00 K/mcL LAB HEMETOLOGY METHOD 05/31/2024 10:25 PM EDT [facility] Reactive Lymph Abs Manual 0.47(H) 0.00 - 0.00 lym LAB HEMETOLOGY METHOD 05/31/2024 10:25 PM EDT [facility] Monocytes Absolute Manual 0.31 0.20 - 1.00 K/mcL LAB HEMETOLOGY METHOD 05/31/2024 10:25 PM EDT [facility] Eosinophils Absolute Manual 0.08 0.00 - 0.50 K/mcL LAB HEMETOLOGY METHOD 05/31/2024 10:25 PM EDT [facility] Basophils Absolute Manual 0.00 0.00 - 0.20 K/mcL LAB HEMETOLOGY METHOD 05/31/2024 10:25 PM EDT [facility] Rbc Morphology Consistent with indices Consistent with indices, Normal for LAB HEMETOLOGY METHOD 05/31/2024 10:25 PM EDT [facility] Platelet Morphology - WAM Normal Normal LAB HEMETOLOGY METHOD 05/31/2024 10:25 PM EDT [facility] Blood Venous blood specimen / Unknown Venipuncture / Unknown 05/31/2024 9:10 PM EDT 05/31/2024 9:16 PM EDT us Heladio Guillen MD LAB BLOOD ORDERABLES Final Result [facility] [address] [place] [address], * B-type natriuretic peptide (05/31/2024 9:10 PM EDT) BNP <2 <=100 pcg/mL LAB CHEMISTRY METHOD 05/31/2024 9:55 PM EDT [facility] Blood Venous blood specimen / Unknown Venipuncture / Unknown 05/31/2024 9:10 PM EDT 05/31/2024 9:16 PM EDT us Heladio Guillen MD LAB BLOOD ORDERABLES Final Result Performing Organization Address City/[facility]/ZIP Co de Phone Number [facility] [address] [place] [address], [place] [phone] * Lipase (05/31/2024 9:10 PM EDT) Lipase 36 13 - 75 unit/L LAB CHEMISTRY METHOD 05/31/2024 9:44 PM EDT [facility] Blood Venous blood specimen / Unknown Venipuncture / Unknown 05/31/2024 9:10 PM EDT 05/31/2024 9:16 PM EDT Heladio Guillen MD LAB BLOOD ORDERABLES Final Result Performing Organization Address [facility] Co de Phone Number [facility] [address] [place] [address], [place] [phone] from Last 3 Months Insurance MEDICAID - [place] Care 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
== END 2024-08-11 10:25 | disposition home or self-care (01) ==
LOC: HO.HMCH 09:20
PROVIDERS: PCP Internal Medicine
DX: G47.33 Obstructive sleep apnea (adult) (pediatric) (principal); Z82.49 Family history of ischemic heart disease and other diseases of the circulatory system; E66.01 Morbid (severe) obesity due to excess calories; Z68.42 Body mass index [BMI] 45.0-49.9, adult

== ENCOUNTER → 2024-08-11 09:19 | Outpatient (BNVA) | payer OTHER, SELFPAY | PROVIDERS: PCP Internal Medicine | DX: R00.2 Palpitations (principal); E66.01 Morbid (severe) obesity due to excess calories; G47.33 Obstructive sleep apnea (adult) (pediatric); G40.909 Epilepsy, unspecified, not intractable, without status epilepticus; R07.9 Chest pain, unspecified; R53.83 Other fatigue; R06.00 Dyspnea, unspecified; G47.00 Insomnia, unspecified; Z68.42 Body mass index [BMI] 45.0-49.9, adult; Z82.49 Family history of ischemic heart disease and other diseases of the circulatory system; Z99.89 Dependence on other enabling machines and devices | CPT/HCPCS: 83036; 96127 ==